=== PATIENT | female | born 1960 | race Caucasian/White ===

== ENCOUNTER 2018-01-16 15:13 | Outpatient (REF) | payer MEDICAID, SELFPAY ==
[2018-01-16 18:43] LABS: HCT 39.2 % (36.0-46.0); Mean Corp. HGB Concentration 33.2 g/dL (32.0-36.0); Mean Corpuscular Hemoglobin 29.1 pg (27.0-33.0); Mean Corpuscular Volume 87.7 fL (80-95); Mean Platelet Volume 10.4 fL (8.0-11.0); Platelet Count 293 x1000/uL (130-400); RBC 4.47 m/cumm (4.00-5.20); RBC Distribution Width 14.9 % (11.7-14.6); White Blood Cell Count 8.16 k/cumm (4.4-10.8)
[2018-01-16 19:08] LABS: ALT 13 U/L (12-78); AST 16 U/L (15-37); Albumin 3.7 g/dL (3.4-5.0); Alkaline Phosphatase 105 U/L (46-116); Anion Gap 11.2 mmol/L (3-11); BUN 8 mg/dL (7-18); Bilirubin, Total 0.2 mg/dL (0.2-1.0); CO2 24.8 mmol/L (21.0-32.0); CREATININE 0.86 mg/dL (0.55-1.02); Chloride 103 mmol/L (98-107); Glucose 105 mg/dL (70-100); Potassium 4.2 mmol/L (3.5-5.1); Sodium 139 mmol/L (136-145); Total Protein 7.1 g/dL (6.4-8.2)
[2018-01-16 19:38] LABS: FREE T4 0.73 ng/dL (0.76-1.46)
== END 2018-01-16 15:33 ==
LOC: LBN 15:13
PROVIDERS: PCP Nurse Practitioner; Visit Provider Nurse Practitioner
DX: E03.9 Hypothyroidism, unspecified (principal); R53.83 Other fatigue
CPT/HCPCS: 80053; 85027; 84439; 84443

== ENCOUNTER 2018-02-01 13:29 | Inpatient (IN) | payer MEDICAID, SELFPAY ==
[2018-02-01] VITALS (31 sets, daily range): BP systolic 109–159; BP diastolic 60–86; PULSE 79–104; RESP 10–22; TEMP 36.4–36.9; O2SAT 90–99
[2018-02-01] MEDS: Ondansetron 4 MG/2 ML VIAL IVP (14:22)
[2018-02-01] MEDS: Normal Saline 1,000 ML 1000 ML IV (14:22)
[2018-02-01 14:30] LABS: Abs Immature Grans 0.01 k/cumm (0.0-0.09); Absolute Basophil Count 0.02 k/cumm (0.0-0.2); Absolute Eosinophil Count 0.03 k/cumm (0.0-0.7); Absolute Lymphocyte Count 0.83 k/cumm (1.2-3.4); Absolute Monocyte Count 0.23 k/cumm (0.11-0.7); Absolute Neutrophil Count 6.97 k/cumm (1.2-6.7); Basophils % 0.2; Eosinophils % 0.4; HCT 40.7 % (36.0-46.0); HGB 13.4 g/dL (12.0-15.5); Immature Grans % 0.1; Lymphocytes % 10.3; Mean Corp. HGB Concentration 32.9 g/dL (32.0-36.0); Mean Corpuscular Hemoglobin 29.5 pg (27.0-33.0); Mean Corpuscular Volume 89.6 fL (80-95); Monocytes % 2.8; Neutrophils % 86.2; Platelet Count 327 x1000/uL (130-400); RBC 4.54 m/cumm (4.00-5.20); RBC Distribution Width 14.9 % (11.7-14.6); White Blood Cell Count 8.09 k/cumm (4.4-10.8)
--- NOTE | 2018-02-01 14:31 | W.ED.GENAD ---
Discharge Plan Disposition Patient Disposition: [facility] INPATIENT Condition: Fair Discharge Details Chief Complaint: Abd Prob Clinical Impression: Pancreatitis Primary Care Provider: Lona Richmond ED Provider: Amos Ceja Home Meds and New Rx's Prescriptions: No Action trazodone 50 mg tablet 200 mg PO HS Qty: 120 RF: 12 sertraline 100 mg tablet 200 mg PO DAILY Qty: 60 RF: 12 sennosides [Senna Lax] 8.6 mg tablet 17.2 mg PO DAILY PRN (Reason: constipation) Qty: 60 RF: 12 fluticasone-salmeterol [Advair HFA] 230-21 mcg/actuation HFA aerosol inhaler 1 puff Inhalation BID Qty: 1 RF: 12 cetirizine 10 MG tablet 1 tab PO DAILY PRNQty: 90 RF: 3 folic acid 1 MG tablet 1 mg PO DAILY Qty: 90 RF: 3 cyanocobalamin (vitamin B-12) 1,000 MCG tablet 1,000 mcg PO DAILY Qty: 90 RF: 3 baclofen 10 MG tablet 10 mg PO BID PRNQty: 20 RF: 0 COMBIVENT RESPIMAT INHAL SPRAY 4 GM AER.W.ADAP 1 puff Inhalation qid prn MDD 12 puffs/day Qty: 1 RF: 3 acetaminophen-codeine [Tylenol-Codeine #3] 1 EACH tablet 1 ea PO DAILY PRNQty: 20 RF: 0 zaleplon 10 MG capsule 10 mg PO HS Qty: 30 RF: 2 pantoprazole 40 mg tablet,delayed release (DR/EC) 40 mg PO BID Qty: 180 RF: 3 docusate sodium 100 mg capsule 100 mg PO DAILY Qty: 30 RF: 12 levothyroxine 112 mcg tablet 112 mcg PO DAILY 90 Days Qty: 96 RF: 3 Medical Decision Making <Amos Ceja, LAVON - Last Filed: 02/01/18 17:01> Patient presenting to the emergency department chief complaint of left upper quadrant epigastric pain with sudden onset at 4 AM. Patient states that pain radiates to her back and is 10 out of 10 and is similar to previous episodes of pancreatitis. Patient denies any alcohol intake or new medications and states that her previous episodes have been idiopathic in nature. Patient states severe nausea but denies any vomiting, diarrhea, fever chills, or other symptoms. Plan to check labs and perform CT image for concern of possible diverticulitis, pancreatitis with abscess, or other abdominal pathology. EKG performed by direct care staffer due to location of pain and reviewed with Dr. Martinez and is nondiagnostic. Pending results patient given 1 L of IV fluids, Zofran, and morphine 4 mg Review of labs show no leukocytosis, lipase of +4500, normal LFTs, and otherwise nondiagnostic labs. Patient still having some discomfort so given 0.5 mg of hydromorphone and CT abdomen and pelvis was ordered for consideration of abscess or other abdominal etiology. Review of CT imaging with the radiologist he states inflammation around the tail of the pancreas consistent with pancreatitis and clinical presentation. Patient has remained stable and states improvement of discomfort after hydromorphone. Plan to consult hospitalist for admission of patient. Spoke with Dr. Russell whom stated he would come down and evaluate the patient for admission. Pending examination and assessment by hospitalist patient stated increase in pain and so she was given 0.[address] Russell agreed to admit the patient and patient was agreeable with this plan of care. Patient remained stable throughout emergency department stay. <[place] Martinez, - Last Filed: 02/01/18 15:51> EKG 13: 40 Rate 104, intervals normal, tachycardic no ST elevations or depressions, no significant T wave inversions. No Q waves HPI <Amos Ceja NP - Last Filed: 02/01/18 17:01> General Mode of arrival: ambulatory. Date/Time Provider Initiated Documentation: 02/01/18 13:46. Limitations to Documentation: no limitations. Information obtained by: patient, RN notes reviewed and old records reviewed. History of Present Illness described as severe, with intensity rated at >10. Quality is described as sharp, and is localized to the abdomen (luq). Patient reports radiation to back. Patient started experiencing this hour(s) (10) and it has been constant. No relieving factors improve symptom(s), No exacerbating factors reported . Patient did receive the following treatments prior to arrival, none Related Data Home Medications Medication Instructions Recorded Confirmed cetirizine 1 tab PO DAILY PRN #90 tab 09/27/16 02/01/18 folic acid 1 mg PO DAILY #90 tab-cap 08/31/17 02/01/18 baclofen 10 mg PO BID PRN #20 tab-cap 09/13/17 02/01/18 cyanocobalamin (vitamin B-12) 1,000 mcg PO DAILY #90 tab 09/13/17 02/01/18 acetaminophen-codeine [Tylenol 1 ea PO DAILY PRN #20 tab-cap 11/21/17 02/01/18 W/Codeine #3 Tablet] zaleplon 10 mg PO HS #30 tab-cap 12/11/17 02/01/18 pantoprazole 40 mg tablet,delayed 40 mg PO BID #180 tab 01/08/18 02/01/18 release docusate sodium 100 mg capsule 100 mg PO DAILY #30 cap 01/16/18 02/01/18 fluticasone-salmeterol 230 mcg-21 1 puff INHALATION BID #1 inhaler 01/16/18 02/01/18 mcg/actuation HFA aerosol inhaler sennosides 8.6 mg tablet 17.2 mg PO DAILY PRN #60 tab 01/16/18 02/01/18 sertraline 100 mg tablet 200 mg PO DAILY #60 tab 01/16/18 02/01/18 trazodone 50 mg tablet 200 mg PO HS #120 tab-cap 01/16/18 02/01/18 levothyroxine 112 mcg tablet 112 mcg PO DAILY 90 Days #96 01/17/18 02/01/18 tab-cap Previous Rx's Medication Instructions Recorded folic acid 1 mg PO DAILY #90 tab-cap 08/31/17 cyanocobalamin (vitamin B-12) 1,000 mcg PO DAILY #90 tab 09/13/17 zaleplon 10 mg PO HS #30 tab-cap 12/11/17 pantoprazole 40 mg tablet,delayed 40 mg PO BID #180 tab 01/08/18 release docusate sodium 100 mg capsule 100 mg PO DAILY #30 cap 01/16/18 fluticasone-salmeterol 230 mcg-21 1 puff INHALATION BID #1 inhaler 01/16/18 mcg/actuation HFA aerosol inhaler sennosides 8.6 mg tablet 17.2 mg PO DAILY PRN #60 tab 01/16/18 sertraline 100 mg tablet 200 mg PO DAILY #60 tab 01/16/18 trazodone 50 mg tablet 200 mg PO HS #120 tab-cap 01/16/18 levothyroxine 112 mcg tablet 112 mcg PO DAILY 90 Days #96 01/17/18 tab-cap Allergies Allergy/AdvReac Type Severity Reaction Status Date / Time HORSE DANDER Allergy Intermediate SWELLING Uncoded 02/01/18 13:46 General Stated Complaint: Abd Prob JIMBO: 3 Review of Systems <Amos Ceja NP - Last Filed: 02/01/18 17:01> Constitutional Denies chills, Denies fever(s) and Reports poor appetite Cardiovascular Denies chest pain, Denies syncope and Denies dyspnea Respiratory Denies dyspnea Gastrointestinal Reports as per HPI, Reports abdominal pain, Denies melena, Denies change in bowel habits, Denies constipation, Denies diarrhea, Reports nausea and Denies vomiting Genitourinary Denies hematuria, Denies urinary incontinence, Denies urinary hesitancy and Denies urinary urgency Integumentary/Breasts Denies rash Neurologic Denies confusion and Denies syncope Psychiatric Denies confusion Exam <Amos Ceja NP - Last Filed: 02/01/18 17:01> Const General: cooperative Orientation: alert, awake and oriented x3 Resp Effort & Inspection: normal respiratory effort and able to speak in complete sentences Auscultation: clear to auscultation bilaterally Cardio Rate: regular rate Rhythm: regular rhythm Heart Sounds: S1 normal and S2 normal GI Inspection: normal to inspection Palpation: soft, no hepatosplenomegaly, not firm, no guarding, no masses, no pulsatile masses, not rigid, no splenomegaly and tender in the epigastrum, in the LLQ and in the LUQ; not at McBurney's point and Campa's sign negative Auscultation: normal bowel sounds Back/Spine/Pelvis Back: no CVA tenderness Neuro General: alert, awake, oriented x3, gait normal and moves all extremities Course <LAVON Weaver Last Filed: 02/01/18 17:01> Vital Signs Temperature 36.4 C L 02/01/18 13:32 Pulse 104 H 02/01/18 13:32 Respiratory Rate 20 02/01/18 13:32 Blood Pressure 136/81 02/01/18 13:32 Pulse Oximetry 97 02/01/18 13:32 Temperature 36.4 C L 10/04/18 13:32 Temperature Source Skin 02/01/18 13:32 Pulse 104 H 02/01/18 13:32 Respiratory Rate 20 02/01/18 13:32 Blood Pressure 136/81 02/01/18 13:32 Blood Pressure Position Sitting 02/01/18 13:32 Pulse Oximetry 97 02/01/18 13:32 Oxygen Delivery Method Room Air 02/01/18 13:32 Oxygen Flow Rate 0 02/01/18 13:32 Pain Level 10 02/01/18 14:22
--- NOTE | 2018-02-01 14:35 | ED.GENADUL_ITS ---
Discharge Plan Disposition Patient Disposition: [facility] INPATIENT Condition: Fair Discharge Details Chief Complaint: Abd Prob Clinical Impression: Pancreatitis Primary Care Provider: Lona Richmond ED Provider: Amos Ceja Home Meds and New Rx's Prescriptions: No Action trazodone 50 mg tablet 200 mg PO HS Qty: 120 RF: 12 sertraline 100 mg tablet 200 mg PO DAILY Qty: 60 RF: 12 sennosides [Senna Lax] 8.6 mg tablet 17.2 mg PO DAILY PRN (Reason: constipation) Qty: 60 RF: 12 fluticasone-salmeterol [Advair HFA] 230-21 mcg/actuation HFA aerosol inhaler 1 puff Inhalation BID Qty: 1 RF: 12 cetirizine 10 MG tablet 1 tab PO DAILY PRNQty: 90 RF: 3 folic acid 1 MG tablet 1 mg PO DAILY Qty: 90 RF: 3 cyanocobalamin (vitamin B-12) 1,000 MCG tablet 1,000 mcg PO DAILY Qty: 90 RF: 3 baclofen 10 MG tablet 10 mg PO BID PRNQty: 20 RF: 0 COMBIVENT RESPIMAT INHAL SPRAY 4 GM AER.W.ADAP 1 puff Inhalation qid prn MDD 12 puffs/day Qty: 1 RF: 3 acetaminophen-codeine [Tylenol-Codeine #3] 1 EACH tablet 1 ea PO DAILY PRNQty: 20 RF: 0 zaleplon 10 MG capsule 10 mg PO HS Qty: 30 RF: 2 pantoprazole 40 mg tablet,delayed release (DR/EC) 40 mg PO BID Qty: 180 RF: 3 docusate sodium 100 mg capsule 100 mg PO DAILY Qty: 30 RF: 12 levothyroxine 112 mcg tablet 112 mcg PO DAILY 90 Days Qty: 96 RF: 3 Medical Decision Making <Amos Ceja, LAVON - Last Filed: 02/01/18 17:01> Patient presenting to the emergency department chief complaint of left upper quadrant epigastric pain with sudden onset at 4 AM. Patient states that pain radiates to her back and is 10 out of 10 and is similar to previous episodes of pancreatitis. Patient denies any alcohol intake or new medications and states that her previous episodes have been idiopathic in nature. Patient states severe nausea but denies any vomiting, diarrhea, fever chills, or other symptoms. Plan to check labs and perform CT image for concern of possible diverticulitis, pancreatitis with abscess, or other abdominal pathology. EKG performed by staff research scientist due to location of pain and reviewed with Dr. Martinez and is nondiagnostic. Pending results patient given 1 L of IV fluids, Zofran, and morphine 4 mg Review of labs show no leukocytosis, lipase of +4500, normal LFTs, and otherwise nondiagnostic labs. Patient still having some discomfort so given 0.5 mg of hydromorphone and CT abdomen and pelvis was ordered for consideration of abscess or other abdominal etiology. Review of CT imaging with the radiologist he states inflammation around the tail of the pancreas consistent with pancreatitis and clinical presentation. Patient has remained stable and states improvement of discomfort after hydromorphone. Plan to consult hospitalist for admission of patient. Spoke with Dr. Russell whom stated he would come down and evaluate the patient for admission. Pending examination and assessment by hospitalist patient stated increase in pain and so she was given 0.[address] Russell agreed to admit the patient and patient was agreeable with this plan of care. Patient remained stable throughout emergency department stay. <West Martinez, - Last Filed: 02/01/18 15:51> EKG 13: 40 Rate 104, intervals normal, tachycardic no ST elevations or depressions, no significant T wave inversions. No Q waves HPI <Amos Ceja NP - Last Filed: 02/01/18 17:01> General Mode of arrival: ambulatory . Date/Time Provider Initiated Documentation: 02/01/18 13:46 . Limitations to Documentation: no limitations . Information obtained by: patient, RN notes reviewed and old records reviewed . History of Present Illness described as severe, with intensity rated at >10. Quality is described as sharp, and is localized to the abdomen (luq). Patient reports radiation to back. Patient started experiencing this hour(s) (10) and it has been constant. No relieving factors improve symptom(s), No exacerbating factors reported . Patient did receive the following treatments prior to arrival, none Related Data Home Medications Medication Instructions Recorded Confirmed cetirizine 1 tab PO DAILY PRN #90 tab 09/27/16 02/01/18 folic acid 1 mg PO DAILY #90 tab-cap 08/31/17 02/01/18 baclofen 10 mg PO BID PRN #20 tab-cap 09/13/17 02/01/18 cyanocobalamin (vitamin B-12) 1,000 mcg PO DAILY #90 tab 09/13/17 02/01/18 acetaminophen-codeine [Tylenol 1 ea PO DAILY PRN #20 tab-cap 11/21/17 02/01/18 W/Codeine #3 Tablet] zaleplon 10 mg PO HS #30 tab-cap 12/11/17 02/01/18 pantoprazole 40 mg tablet,delayed 40 mg PO BID #180 tab 01/08/18 02/01/18 release docusate sodium 100 mg capsule 100 mg PO DAILY #30 cap 01/16/18 02/01/18 fluticasone-salmeterol 230 mcg-21 1 puff INHALATION BID #1 inhaler 01/16/1808/16 mcg/actuation HFA aerosol inhaler sennosides 8.6 mg tablet 17.2 mg PO DAILY PRN #60 tab 01/16/18 02/01/18 sertraline 100 mg tablet 200 mg PO DAILY #60 tab 01/16/18 02/01/18 trazodone 50 mg tablet 200 mg PO HS #120 tab-cap 01/16/18 02/01/18 levothyroxine 112 mcg tablet 112 mcg PO DAILY 90 Days #96 01/17/18 02/01/18 tab-cap Previous Rx's Medication Instructions Recorded folic acid 1 mg PO DAILY #90 tab-cap 08/31/17 cyanocobalamin (vitamin B-12) 1,000 mcg PO DAILY #90 tab 09/13/17 zaleplon 10 mg PO HS #30 tab-cap 12/11/17 pantoprazole 40 mg tablet,delayed 40 mg PO BID #180 tab 01/08/18 release docusate sodium 100 mg capsule 100 mg PO DAILY #30 cap 01/16/18 fluticasone-salmeterol 230 mcg-21 1 puff INHALATION BID #1 inhaler 01/16/18 mcg/actuation HFA aerosol inhaler sennosides 8.6 mg tablet 17.2 mg PO DAILY PRN #60 tab 01/16/18 sertraline 100 mg tablet 200 mg PO DAILY #60 tab 01/16/18 trazodone 50 mg tablet 200 mg PO HS #120 tab-cap 01/16/18 levothyroxine 112 mcg tablet 112 mcg PO DAILY 90 Days #96 01/17/18 tab-cap Allergies Allergy/AdvReac Type Severity Reaction Status Date / Time HORSE DANDER Allergy Intermediate SWELLING Uncoded 02/01/18 13:46 General Stated Complaint: Abd Prob JIMBO: 3 Review of Systems <Amos Ceja NP - Last Filed: 02/01/18 17:01> Constitutional Denies chills, Denies fever(s) and Reports poor appetite Cardiovascular Denies chest pain, Denies syncope and Denies dyspnea Respiratory Denies dyspnea Gastrointestinal Reports as per HPI, Reports abdominal pain, Denies melena, Denies change in bowel habits, Denies constipation, Denies diarrhea, Reports nausea and Denies vomiting Genitourinary Denies hematuria, Denies urinary incontinence, Denies urinary hesitancy and Denies urinary urgency Integumentary/Breasts Denies rash Neurologic Denies confusion and Denies syncope Psychiatric Denies confusion Exam <Amos Ceja NP - Last Filed: 02/01/18 17:01> Const General: cooperative Orientation: alert, awake and oriented x3 Resp Effort & Inspection: normal respiratory effort and able to speak in complete sentences Auscultation: clear to auscultation bilaterally Cardio Rate: regular rate Rhythm: regular rhythm Heart Sounds: S1 normal and S2 normal GI Inspection: normal to inspection Palpation: soft, no hepatosplenomegaly, not firm, no guarding, no masses, no pulsatile masses, not rigid, no splenomegaly and tender in the epigastrum, in the LLQ and in the LUQ; not at McBurney's point and Campa's sign negative Auscultation: normal bowel sounds Back/Spine/Pelvis Back: no CVA tenderness Neuro General: alert, awake, oriented x3, gait normal and moves all extremities Course <LAVON Weaver Last Filed: 02/01/18 17:01> Vital Signs Temperature 36.4 C L 02/01/18 13:32 Pulse 104 H 02/01/18 13:32 Respiratory Rate 20 02/01/18 13:32 Blood Pressure 136/81 02/01/18 13:32 Pulse Oximetry 97 02/01/18 13:32 Temperature 36.4 C L 10/04/18 13:32 Temperature Source Skin 02/01/18 13:32 Pulse 104 H 02/01/18 13:32 Respiratory Rate 20 02/01/18 13:32 Blood Pressure 136/81 02/01/18 13:32 Blood Pressure Position Sitting 02/01/18 13:32 Pulse Oximetry 97 02/01/18 13:32 Oxygen Delivery Method Room Air 02/01/18 13:32 Oxygen Flow Rate 0 02/01/18 13:32 Pain Level 10 02/01/18 14:22
[2018-02-01 14:41] LABS: ALT 14 U/L (12-78); AST 13 U/L (15-37); Albumin 3.8 g/dL (3.4-5.0); Alkaline Phosphatase 109 U/L (46-116); Anion Gap 11.5 mmol/L (3-11); BUN 11 mg/dL (7-18); Bilirubin, Total 0.3 mg/dL (0.2-1.0); CO2 22.5 mmol/L (21.0-32.0); CREATININE 0.93 mg/dL (0.55-1.02); Calcium 9.1 mg/dL (8.5-10.1); Chloride 104 mmol/L (98-107); Glucose 141 mg/dL (70-100); Potassium 3.6 mmol/L (3.5-5.1); Sodium 138 mmol/L (136-145); Total Protein 7.5 g/dL (6.4-8.2)
[2018-02-01] MEDS: HYDROmorphone 2 MG/ML VIAL 0.5 MG IVP ×3 (14:54→17:44)
[2018-02-01 15:00] LABS: ETHANOL BLOOD < 3.0 mg/dL (<3); Lipase 4593 U/L (73-393)
--- NOTE | 2018-02-01 15:16 | DI.CT_ITS ---
SYMPTOM/DIAGNOSIS: ABD PAIN ABDOMEN AND PELVIC CT: CT scan of the abdomen and pelvis was performed following the uneventful administration of intravenous contrast material. Comparison is made with . There are dependent atelectatic changes in the lung bases. The liver, gallbladder, spleen and adrenal glands are unremarkable. There is fullness of the tail of the pancreas. Peripancreatic fluid is seen adjacent to the tail. No focal fluid collection is seen to suggest abscess. No organized fluid collection is seen. The kidneys show normal and symmetric enhancement. No solid renal mass or obstruction. The visualized portions of the urinary bladder are unremarkable as are the reproductive organs. There is a trace amount of free fluid in the pelvis. No pneumoperitoneum or significant adenopathy is present. The patient has bilateral total hip replacements which does limit evaluation of the pelvic structures. The bowel shows no evidence of obstruction or inflammation. No findings to suggest an acute appendicitis are present. There is atherosclerosis of the abdominal aorta but no aneurysmal dilatation is seen. Degenerative changes are seen in the spine. IMPRESSION: Findings consistent with an acute pancreatitis. No organized fluid collection is seen to suggest abscess or phlegmon. The findings were discussed with Amos Ceja of the ER on the date of the examination.
[2018-02-01] MEDS: Omnipaque 350 MG/ML 100 ML BTL IJ (15:40)
[2018-02-01 16:05] LABS: Bilirubin Negative (Negative); Blood Negative (Negative); Clarity Sl Cloudy; Glucose Negative (Negative); Ketones Negative (Negative); Leukocyte Esterase Negative (Negative); Nitrite Negative (Negative); Specific Gravity 1.015 (1.005-1.025); Urobilinogen 0.2 EU/dL (Up TO 0.2); pH 8.5 (5-8)
[2018-02-01 16:15] LABS: Bacteria Negative HPF (Negative); C & S Indicated? No; Casts Negative LPF (Negative); Crystals Many Amorphous HPF (Negative); Epithelial Cells Negative HPF (Negative); Mucus Negative (Negative); Other Cells Negative (Negative); RBC Negative (0-2); WBC Negative HPF (0-5)
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
[2018-02-01] MEDS: Lactated Ringers 1,000 ML 150 ML IV (17:03)
[2018-02-01] MEDS: Normal Saline Flush 10 ML SYR 20 ML (17:44)
[2018-02-01] MEDS: Enoxaparin 40 MG/0.4 ML SYR SC (17:45)
[2018-02-01] MEDS: Nicotine 14 MG/24 HR PATCH TD (18:00)
[2018-02-01] MEDS: Budesonide/Formoterol 160/4.5 6 GM 60 PUFF INH IH (19:21)
[2018-02-01] MEDS: Pantoprazole 40 MG TABCR PO (19:22)
[2018-02-01] MEDS: HYDROmorphone 2 MG/ML VIAL 1 MG IVP ×2 (19:24→21:18)
[2018-02-01] MEDS: traZODone 50 MG TAB 200 MG PO (21:17)
[2018-02-02] VITALS (29 sets, daily range): BP systolic 92–122; BP diastolic 50–96; PULSE 87–101; RESP 1–18; TEMP 36.4–37.7; O2SAT 88–96
[2018-02-02] MEDS: Albuterol 2.5 MG/3 ML INH SOLN VIAL UPD ×2 (03:54→18:59)
[2018-02-02] MEDS: HYDROmorphone 2 MG/ML VIAL 1 MG IVP ×5 (04:06→14:44)
[2018-02-02 07:09] LABS: HCT 35.7 % (36.0-46.0); HGB 11.3 g/dL (12.0-15.5); Mean Corp. HGB Concentration 31.7 g/dL (32.0-36.0); Mean Corpuscular Hemoglobin 29.4 pg (27.0-33.0); Mean Platelet Volume 9.7 fL (8.0-11.0); Platelet Count 280 x1000/uL (130-400); RBC 3.84 m/cumm (4.00-5.20); White Blood Cell Count 9.31 k/cumm (4.4-10.8)
[2018-02-02] MEDS: Budesonide/Formoterol 160/4.5 6 GM 60 PUFF INH IH ×2 (07:12→21:12)
[2018-02-02] MEDS: Lactated Ringers 1,000 ML 150 ML IV (07:13)
[2018-02-02 07:20] LABS: Anion Gap 8.1 mmol/L (3-11); BUN 11 mg/dL (7-18); CO2 25.9 mmol/L (21.0-32.0); CREATININE 0.86 mg/dL (0.55-1.02); Chloride 106 mmol/L (98-107); Cholesterol 230 mg/dL (50-200); Glucose 98 mg/dL (70-100); HDL Cholesterol 51 mg/dL (40-60); LDL CHOLESTEROL 161 mg/dL (<100); Sodium 140 mmol/L (136-145); Triglyceride 126 mg/dL (30-150)
--- NOTE | 2018-02-02 07:44 | PDOC.CMIN ---
- If Service Date Differs Date of service: 02/02/18 Time of Service: 07:44 Care Management Initial Assess REASON FOR HOSPITALIZATION:: Recurrent pancreatitis. PAST MEDICAL HISTORY/PAST SURGICAL HISTORY:: Restless leg, genital herpes simplex, tremors, hypothyroidism, GERD, esophageal reflux, depressive disorder, Valladares's esophagus, asthma, allergic rhinitis, agoraphobia, recurrent pancreatitis, anxiety, Vitamin B12 deficiency, PREVIOUS FUNCTIONAL STATUS/SOCIAL/FAMILY SUPPORTS:: Sherice resides in an apartment in [facility] with her 23 year old daughter, Leanne. 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 She is independent with her ADLs. CURRENT FUNCTIONAL STATUS:: Sherice is lying in bed in the ICU when CM visits this morning. She is engaged in conversation, makes good eye contact and is teary. She has had recurrent admissions to [facility] and is frustrated that no one seems to know what's wrong with me. Sherice c/o 9/10 pain and is nauseous, and reports that she has a headache due to not having any coffee this morning. She is currently NPO and receiving IV fluids and supplemental O2 via MD. Sherice reports that she has a daughter, Leanne, who is supportive but no other support people in the community. ADVANCE DIRECTIVES:: None on file at [facility]. Has patient been provided with information about the portal?: Yes Did the patient sign up for the portal?: No CODE STATUS:: Full Code INSURANCE COVERAGE / FINANCIAL ISSUES:: Medicaid. CURRENT HOME/COMMUNITY SERVICES/EQUIPMENT:: Sherice has met with Shayla Gramajo of [facility]. No other home or community services or equipment. PRIMARY CARE PHYSICIAN:: Lona Richmond. POTENTIAL DISCHARGE NEEDS:: Follow up appointment with PCP. PATIENT/FAMILY EDUCATION NEEDS:: Discharge education, any limitations and follow up plan of care. ANTICIPATED BARRIERS TO DISCHARGE:: No anticipated barriers to discharge. TRANSPORTATION:: Sherice will transport via private vehicle with her neighbor, Scottie. PLAN:: Sherice will discharge home when medically ready per MD. Anticipate patient will discharge with no services and follow up with PCP. CM will continue to offer support to patient and care team regarding discharge planning and disposition.
--- NOTE | 2018-02-02 08:37 | INITIAL_ITS ---
- If Service Date Differs Date of service: 02/02/18 Time of Service: 07:44 Care Management Initial Assess REASON FOR HOSPITALIZATION:: Recurrent pancreatitis. PAST MEDICAL HISTORY/PAST SURGICAL HISTORY:: Restless leg, genital herpes simplex, tremors, hypothyroidism, GERD, esophageal reflux, depressive disorder, Valladares's esophagus, asthma, allergic rhinitis, agoraphobia, recurrent pancreatitis, anxiety, Vitamin B12 deficiency, PREVIOUS FUNCTIONAL STATUS/SOCIAL/FAMILY SUPPORTS:: Sherice resides in an apartment in [place] [facility] with her 23 year old daughter, Leanne. 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 She is independent with her ADLs. CURRENT FUNCTIONAL STATUS:: Sherice is lying in bed in the ICU when CM visits this morning. She is engaged in conversation, makes good eye contact and is teary. She has had recurrent admissions to [facility] and is frustrated that no one seems to know what's wrong with me. Sherice c/o 9/10 pain and is nauseous, and reports that she has a headache due to not having any coffee this morning. She is currently NPO and receiving IV fluids and supplemental O2 via DC. Sherice reports that she has a daughter, Leanne, who is supportive but no other support people in the community. ADVANCE DIRECTIVES:: None on file at [facility]. Has patient been provided with information about the portal?: Yes Did the patient sign up for the portal?: No CODE STATUS:: Full Code INSURANCE COVERAGE / FINANCIAL ISSUES:: Medicaid. CURRENT HOME/COMMUNITY SERVICES/EQUIPMENT:: Sherice has met with Shayla Gramajo of [facility] No other home or community services or equipment. PRIMARY CARE PHYSICIAN:: Lona Richmond. POTENTIAL DISCHARGE NEEDS:: Follow up appointment with PCP. PATIENT/FAMILY EDUCATION NEEDS:: Discharge education, any limitations and follow up plan of care. ANTICIPATED BARRIERS TO DISCHARGE:: No anticipated barriers to discharge. TRANSPORTATION:: Sherice will transport via private vehicle with her neighbor, Scottie. PLAN:: Sherice will discharge home when medically ready per MD. Anticipate patient will discharge with no services and follow up with PCP. CM will continue to offer support to patient and care team regarding discharge planning and disposition.
[2018-02-02] MEDS: Pantoprazole 40 MG TABCR PO ×2 (08:54→21:12)
[2018-02-02] MEDS: Levothyroxine 112 MCG TAB PO (08:54)
[2018-02-02] MEDS: Sertraline 50 MG TAB 200 MG PO (08:56)
--- NOTE | 2018-02-02 09:39 | PHARADMIT ---
Addendum entered by Juan C Dodson III 02/03/18 13:37: Pharmacy Note Subjective Chest bX-ray shows opacities (?pneumonia) Zosyn started. Objective VS-OK K+3.1 SCr-0.59 H&H-10.0/31.1 Plts-238 Wgt-74.2 kg No BM Assessment Watch hydromorphone intake. Plan May havae pneumonia exacerbating COPD ( smoker) Original Note: Admission Pharmacy Clinical Review RECURRENT PANCREATITIS Code Status Full Code Current Weight Wgt- 72.1 kg Renally Cleared and Narrow Therapeutic Index Meds CrCl~ 62.3 mL/min Meds-OK QTc Value / Action Taken NA BP Control, Fever BP- 101/61 Tmax- 36.6C Electrolytes reviewed Na- 140 k+4.0 DVT Prophylaxis Lovenox-40mg Opiate Usage / Scheduled Bowel Regimen Ordered Yes Yes Plt/SCr for Heparin / Enoxaparin Plts-280 SCr-0.86 INR for Warfarin NA H/H stable, WBC/Bands H&H- 11.3/35.7 WBC- 9.31 Antibiotic appropriateness none Cultures and Sensitivities none Surgical ABX d/c within 24 hr na DM control / Insulin Dosing BG-98 Heart Failure (Check EF%) (HARRISON's, B-Block, Diuretics) none IV to PO Switch No Home Meds Reviewed Yes Home Meds Not Ordered Baclofen,Zyrtec, Tyl#3, B-12, Combivent, Docusate,FolicAcid, Senna Comments Lipase-4,593
[2018-02-02] MEDS: LORazepam 2 MG/ML VIAL 0.5 MG IVP (11:40)
--- NOTE | 2018-02-02 11:40 | PGE_ITS ---
Assessment and Plan (1) Pancreatitis, recurrent: Current visit: Yes Status: Acute Await MRCP results. Increase IV fluids, carefully monitoring ins and outs. Increase IV Dilaudid. Continue as needed Zofran; keep patient n.p.o. today. Patient aware of the effects of smoking on pancreatitis. (2) URI (upper respiratory infection): Current visit: Yes Status: Acute Likely due to a viral process. I do not feel that the patient requires antibiotic therapy at this time. (3) Atelectasis: Current visit: Yes Status: Acute Due to acute abdominal pain as well as narcotic therapy. Continue supplemental oxygen. I have ordered incentive spirometry to encourage deep breathing. (4) Hypoxia: Current visit: Yes Status: Acute Read discussion for atelectasis. (5) Tobacco use disorder: Current visit: Yes Status: Chronic See discussion above. Patient counseled on quitting. (6) Gastroesophageal reflux disease: Current visit: Yes Status: Chronic Continue IV PPI while n.p.o. Subjective Interval history since last seen: The patient complains of pain every time she takes a deep breath. She denies any dizziness, chest pain other than when she is taking a deep breath. She does report episodic nausea. She complains of epigastric abdominal pain which she describes as twisting and pulling. She reports cough productive of clear-yellowish sputum. She states she is recovering from a cold, which started with nasal congestion and sore throat, but only cough remains now. She still smokes. She verbalized understanding after our discussion of effects of smoking on the pancreas. Exam Const Other: Uncomfortable middle-aged female, pale, laying in bed HENTN Other: Pale, dry mucous membranes. No JVD. Wearing a nasal canula (1L). No goiter. Eyes General: appearance normal, both eyes and all related structures Resp Other: Clear to auscultation bilaterally. Coughs and is visibly uncomfortable upon taking deep breaths. Cardio Other: Regularly regular rhythm, no murmurs, rubs, or gallops GI Other: Abdomen soft, tender in left upper quadrant, nondistended Skin Other: Dry, otherwise intact Extrem Other: No edema, clubbing, or cyanosis of bilateral lower extremities. Objective Objective Clinical Data: Abnormal lab results 02/01/18 02/01/18 02/01/18 Range/Units 13:45 13:45 15:10 RBC (4.00-5.20) m/cumm Hgb (12.0-15.5) g/dL Hct (36.0-46.0) % MCHC (32.0-36.0) g/dL RDW 14.9 H (11.7-14.6) % Absolute Neutrophils 6.97 H (1.2-6.7) k/cumm Absolute Lymphocytes 0.83 L (1.2-3.4) k/cumm Anion Gap 11.5 H (3-11) mmol/L Glucose 141 H (70-100) mg/dL Calcium (8.5-10.1) mg/dL AST 13 L (15-37) U/L Total Cholesterol (50-200) mg/dL LDL Cholesterol Direct (<100) mg/dL Lipase 4593 H (73-393) U/L Urine pH 8.5 H (5-8) Urine Protein 30 H (Negative) mg/dL 02/02/18 02/02/18 Range/Units 06:38 06:38 RBC 3.84 L (4.00-5.20) m/cumm Hgb 11.3 L D (12.0-15.5) g/dL Hct 35.7 L (36.0-46.0) % MCHC 31.7 L (32.0-36.0) g/dL RDW 15.0 H (11.7-14.6) % Absolute Neutrophils (1.2-6.7) k/cumm Absolute Lymphocytes (1.2-3.4) k/cumm Anion Gap (3-11) mmol/L Glucose (70-100) mg/dL Calcium 8.0 L (8.5-10.1) mg/dL AST (15-37) U/L Total Cholesterol 230 H (50-200) mg/dL LDL Cholesterol Direct 161 H (<100) mg/dL Lipase (73-393) U/L Urine pH (5-8) Urine Protein (Negative) mg/dL Vital Signs Temperature 36.4 C L 02/02/18 09:02 Temperature Source Temporal Artery Scan 02/02/18 09:02 Pulse 92 H 02/02/18 10:01 Pulse 83 02/01/18 15:10 Respiratory Rate 18 02/02/18 00:05 Respiratory Effort 02/02/18 09:02 Respiratory Depth Normal 02/02/18 09:02 Respiratory Pattern Normal 02/02/18 09:02 Blood Pressure 112/58 L 02/02/18 10:01 Blood Pressure Mean 69 02/02/18 10:01 Blood Pressure Position Supine 02/02/18 09:02 Pulse Oximetry 92 L 02/02/18 10:01 Oxygen Delivery Method Nasal Cannula 02/02/18 09:02 Oxygen Flow Rate 1 02/02/18 09:02 Pain Level 9 02/02/18 11:01 Intake & Output 02/01/18 02/01/18 02/02/18 11:59 23:59 11:59 Intake Total 1430 / 1430 Output Total 575 / 575 Balance 855 / 855 Weight 69.5 kg 72.1 kg Intake: IV 1430 / 1430 Output: Urine 575 / 575 Other: Urine Color Straw Urine Appearance Clear Urine Odor Strong Voiding Methods Bedside Commode Laboratory Results WBC 9.31 k/cumm (4.4-10.8) 02/02/18 06:38 RBC 3.84 m/cumm (4.00-5.20) L 02/02/18 06:38 Hgb 11.3 g/dL (12.0-15.5) L D 02/02/18 06:38 Hct 35.7 % (36.0-46.0) L 02/02/18 06:38 MCV 93.0 fL (80-95) D 02/02/18 06:38 MCH 29.4 pg (27.0-33.0) 02/02/18 06:38 MCHC 31.7 g/dL (32.0-36.0) L 02/02/18 06:38 RDW 15.0 % (11.7-14.6) H 02/02/18 06:38 Plt Count 280 x1000/uL (130-400) 02/02/18 06:38 MPV 9.7 fL (8.0-11.0) 02/02/18 06:38 Immature Gran % 0.1 02/01/18 13:45 Neutrophils % 86.2 02/01/18 13:45 Lymphocytes % 10.3 02/01/18 13:45 Monocytes % 2.8 02/01/18 13:45 Eosinophils % 0.4 02/01/18 13:45 Basophils % 0.2 02/01/18 13:45 Absolute Neutrophils 6.97 k/cumm (1.2-6.7) H 02/01/18 13:45 Absolute Lymphocytes 0.83 k/cumm (1.2-3.4) L 02/01/18 13:45 Absolute Monocytes 0.23 k/cumm (0.11-0.7) 02/01/18 13:45 Absolute Eosinophils 0.03 k/cumm (0.0-0.7) 02/01/18 13:45 Absolute Basophils 0.02 k/cumm (0.0-0.2) 02/01/18 13:45 Sodium 140 mmol/L (136-145) 02/02/18 06:38 Potassium 4.0 mmol/L (3.5-5.1) 02/02/18 06:38 Chloride 106 mmol/L (98-107) 02/02/18 06:38 Carbon Dioxide 25.9 mmol/L (21.0-32.0) 02/02/18 06:38 Anion Gap 8.1 mmol/L (3-11) 02/02/18 06:38 BUN 11 mg/dL (7-18) 02/02/18 06:38 Creatinine 0.86 mg/dL (0.55-1.02) 02/02/18 06:38 Estimated GFR/1.73 m2 >= 60.00 (mL/min/1.73m2) 02/02/18 06:38 Glucose 98 mg/dL (70-100) 02/02/18 06:38 Calcium 8.0 mg/dL (8.5-10.1) L 02/02/18 06:38 Total Bilirubin 0.3 mg/dL (0.2-1.0) 02/01/18 13:45 AST 13 U/L (15-37) L 02/01/18 13:45 ALT 14 U/L (12-78) 02/01/18 13:45 Alkaline Phosphatase 109 U/L (46-116) 02/01/18 13:45 Total Protein 7.5 g/dL (6.4-8.2) 02/01/18 13:45 Albumin 3.8 g/dL (3.4-5.0) 02/01/18 13:45 Triglycerides 126 mg/dL (30-150) 02/02/18 06:38 Total Cholesterol 230 mg/dL (50-200) H 02/02/18 06:38 LDL Cholesterol Direct 161 mg/dL (<100) H 02/02/18 06:38 HDL Cholesterol 51 mg/dL (40-60) 02/02/18 06:38 Lipase 4593 U/L (73-393) H 02/01/18 13:45 Urine Color Yellow (Yellow) 02/01/18 15:10 Urine Clarity Sl cloudy 02/01/18 15:10 Urine pH 8.5 (5-8) H 02/01/18 15:10 Ur Specific [place] 1.015 (1.005-1.025) 02/01/18 15:10 Urine Protein 30 mg/dL (Negative) H 02/01/18 15:10 Urine Ketones Negative mg/dL (Negative) 02/01/18 15:10 Urine Blood Negative (Negative) 02/01/18 15:10 Urine Nitrite Negative (Negative) 02/01/18 15:10 Urine Bilirubin Negative (Negative) 02/01/18 15:10 Urine Urobilinogen 0.2 EU/dL (Up TO 0.2) 02/01/18 15:10 Ur Leukocyte Esterase Negative (Negative) 02/01/18 15:10 Urine RBC Negative (0-2) 02/01/18 15:10 Urine WBC Negative HPF (0-5) 02/01/18 15:10 Ur Epithelial Cells Negative HPF (Negative) 02/01/18 15:10 Urine Crystals Many amorphous HPF (Negative) 02/01/18 15:10 Urine Bacteria Negative HPF (Negative) 02/01/18 15:10 Urine Casts Negative LPF (Negative) 02/01/18 15:10 Urine Mucus Negative (Negative) 02/01/18 15:10 Urine Other Negative (Negative) 02/01/18 15:10 Ur Culture Indicated? No 02/01/18 15:10 Urine Glucose Negative mg/dL (Negative) 02/01/18 15:10 Ethyl Alcohol < 3.0 mg/dL (<3) 02/01/18 13:45
[2018-02-02] MEDS: Normal Saline Flush 10 ML SYR IVP ×3 (11:41→17:45)
--- NOTE | 2018-02-02 13:04 | DI.MRI_ITS ---
SYMPTOM/DIAGNOSIS: PANCREATITIS, MRCP MRCP: Routine examination was performed. The intra and extrahepatic bile ducts are normal in caliber. No filling defects are seen to suggest choledocholithiasis. No cholelithiasis is present. The pancreatic duct appears grossly unremarkable. There is a small amount of perihepatic and perisplenic fluid present. There do appear to be bilateral pleural effusions and basilar infiltrates. These may represent atelectasis or pneumonia. There is a small amount of fluid seen around the tail of the pancreas which appears stable compared to the examination from the CT of 02/01/18. IMPRESSION: 1. No evidence of cholelithiasis or choledocholithiasis. No biliary ductal dilatation. 2. Small amount of upper abdominal ascites. 3. Infiltrate and effusion suggested in the lower lungs. This may represent atelectasis or pneumonia.
[2018-02-02] MEDS: Lactated Ringers 1,000 ML 200 ML IV ×2 (14:21→21:17)
[2018-02-02] MEDS: Ketorolac 15 MG/ML VIAL IVP (17:31)
[2018-02-02] MEDS: Enoxaparin 40 MG/0.4 ML SYR SC (17:45)
[2018-02-02] MEDS: HYDROmorphone 2 MG/ML VIAL 0.5 MG IVP (19:40)
[2018-02-02] MEDS: traZODone 50 MG TAB 200 MG PO (21:12)
[2018-02-03] VITALS (17 sets, daily range): BP systolic 97–144; BP diastolic 45–67; PULSE 68–87; RESP 16–20; TEMP 36–37.3; O2SAT 89–94
[2018-02-03] MEDS: Ketorolac 15 MG/ML VIAL IVP ×5 (00:16→23:50)
[2018-02-03] MEDS: HYDROmorphone 2 MG/ML VIAL IVP ×3 (01:32→22:01)
[2018-02-03] MEDS: Lactated Ringers 1,000 ML 200 ML IV ×2 (01:39→05:52)
--- NOTE | 2018-02-03 07:00 | DI.RAD_ITS ---
SYMPTOMS/DIAGNOSIS: HYPOXIA, ? ATELECTASIS CHEST X-RAY, PORTABLE AP VIEW: Comparison CT scan is 02/01/18. Comparison chest x-ray is 10/16/17. The heart size and pulmonary vasculature are within normal limits. There are bilateral infiltrates in the lung bases; these areas may represent atelectasis or pneumonia. No gross effusions or pneumothoraces are identified. The bones are intact. Mild elevation of the left hemidiaphragm is noted. IMPRESSION: Bilateral basilar infiltrates. These may represent atelectasis or pneumonia.
[2018-02-03] MEDS: Budesonide/Formoterol 160/4.5 6 GM 60 PUFF INH IH ×2 (07:17→19:51)
[2018-02-03 07:19] LABS: HCT 31.1 % (36.0-46.0); Mean Corp. HGB Concentration 32.2 g/dL (32.0-36.0); Mean Corpuscular Hemoglobin 29.4 pg (27.0-33.0); Mean Corpuscular Volume 91.5 fL (80-95); Mean Platelet Volume 10.1 fL (8.0-11.0); Platelet Count 238 x1000/uL (130-400); RBC Distribution Width 14.8 % (11.7-14.6); White Blood Cell Count 6.64 k/cumm (4.4-10.8)
[2018-02-03 07:37] LABS: ALT 11 U/L (12-78); AST 22 U/L (15-37); Albumin 2.3 g/dL (3.4-5.0); Alkaline Phosphatase 76 U/L (46-116); Bilirubin, Direct 0.05 mg/dL (0.00-0.20); Bilirubin, Total 0.3 mg/dL (0.2-1.0)
[2018-02-03 07:46] LABS: Anion Gap 8.6 mmol/L (3-11); BUN 7 mg/dL (7-18); CO2 23.4 mmol/L (21.0-32.0); CREATININE 0.59 mg/dL (0.55-1.02); Calcium 7.9 mg/dL (8.5-10.1); Chloride 108 mmol/L (98-107); Glucose 65 mg/dL (70-100); Potassium 3.1 mmol/L (3.5-5.1); Sodium 140 mmol/L (136-145)
--- NOTE | 2018-02-03 09:11 | DI.VRAD_ITS ---
EXAM: XR Chest, 1 View EXAM DATE/TIME: 02/03/2018 7:26 AM CLINICAL HISTORY: 57 years old, female; Signs and symptoms; Other: Hypoxia; Patient HX: Question atelectasis TECHNIQUE: XR of the chest, 1 view. COMPARISON: CR RIGHT RIBS TO INCLUDE CXR 12/19/2011 2:52 PM FINDINGS: Lungs: Opacities in both bases may represent atelectasis or pneumonia. Pleural space: Unremarkable. No pleural effusion. No pneumothorax. Heart/Mediastinum: Unremarkable. No cardiomegaly. Upper abdomen: Mildly elevated left hemidiaphragm Bones/joints: Unremarkable for patient's age. IMPRESSION: Opacities in both bases may represent atelectasis or pneumonia. Dictated and Authenticated by: Deb Figueredo MD. Ordering:ZAID BRICENO MD
[2018-02-03] MEDS: Sertraline 50 MG TAB 200 MG PO (09:24)
[2018-02-03] MEDS: Levothyroxine 112 MCG TAB PO (09:24)
[2018-02-03] MEDS: Pantoprazole 40 MG TABCR PO ×2 (09:24→19:51)
[2018-02-03] MEDS: POTASSIUM CHLORIDE/D5-0.9%NACL 1,000 ML 150 MEQ IV ×2 (10:11→18:03)
[2018-02-03] MEDS: PIPERACILLIN/TAZO 3.375 GM in Normal Saline 50 ML IVPB ×3 (10:21→22:01)
[2018-02-03] MEDS: Normal Saline Flush 10 ML SYR IVP ×4 (11:50→23:50)
--- NOTE | 2018-02-03 13:25 | PDOC.CMPRO ---
Care Management Progress Note S/O: Sherice was sound asleep when I went to visit this morning. She did have some diagnostic testing done earlier this morning. A: 57 y.o. female admitted for recurrent pancreatitis. Remains in Acute Care status. P: Sherice will return home when medically cleared for discharge. No home services needed. Neighbor, Scottie, will transport by car.
--- NOTE | 2018-02-03 15:07 | PGE_ITS ---
Assessment and Plan (1) Pancreatitis, recurrent: Current visit: Yes Status: Acute MRCP unremarkable. Clinically improving. Advance diet. Continue IVF. Toradol + dilaudid. (2) URI (upper respiratory infection): Current visit: Yes Status: Acute CXR this am also questionable for pneumonia vs atelectasis. Empiric zosyn started, but will likely be discontinued/transitioned to PO abx within the next 24 hours if the patient can tolerate PO. (3) Atelectasis: Current visit: Yes Status: Acute Encouraged IS. (4) Hypoxia: Current visit: Yes Status: Acute Multifactorial, improving. Will need ambulatory pulse ox testing. Continue IS for atelectasis, limiting narcotics. Treating possible underlying CAP. (5) Tobacco use disorder: Current visit: Yes Status: Chronic See discussion above. Patient counseled on quitting. (6) Gastroesophageal reflux disease: Current visit: Yes Status: Chronic Continue IV PPI Subjective Interval history since last seen: Patient wanted to leave AMA yesterday, but decided to stay. She feels better today. She is hungry and is interested in trying food. Pain is better controlled. She denies any dizziness, chest pain, shortness of breath, nausea, vomiting. Her cough is getting better. Exam Narrative Exam Narrative: Const More comfortable today, laying in bed HENMT MMM, No JVD. Wearing a nasal canula (1L). No goiter. Eyes small conjunctival hemorrhage right eye Resp CTAB Cardio Other: Regularly regular rhythm, no murmurs, rubs, or gallops GI Other: Abdomen soft, tender in epigastrium Skin Other: Dry, otherwise intact Extrem Other: No edema, clubbing, or cyanosis of bilateral lower extremities. Eyes General: appearance normal, both eyes and all related structures Objective Objective Clinical Data: Abnormal lab results 02/03/18 02/03/18 Range/Units 06:20 06:20 RBC 3.40 L (4.00-5.20) m/cumm Hgb 10.0 L (12.0-15.5) g/dL Hct 31.1 L (36.0-46.0) % RDW 14.8 H (11.7-14.6) % Potassium 3.1 L (3.5-5.1) mmol/L Chloride 108 H (98-107) mmol/L Glucose 65 L (70-100) mg/dL Calcium 7.9 L (8.5-10.1) mg/dL ALT 11 L (12-78) U/L Total Protein 5.0 L (6.4-8.2) g/dL Albumin 2.3 L (3.4-5.0) g/dL Vital Signs Temperature 36.6 C 02/03/18 12:45 Temperature Source Temporal Artery Scan 02/03/18 12:45 Pulse 78 02/03/18 12:45 Pulse Rhythm Regular 02/03/18 10:24 Pulse 83 02/01/18 15:10 Respiratory Rate 16 02/03/18 12:45 Respiratory Effort 02/03/18 10:24 Respiratory Depth Normal 02/03/18 10:24 Respiratory Pattern Normal 02/03/18 10:24 Blood Pressure 127/66 02/03/18 12:45 Blood Pressure Mean 80 02/03/18 12:42 Blood Pressure Position Supine 02/02/18 09:02 Pulse Oximetry 94 L 02/03/18 12:45 Oxygen Delivery Method Nasal Cannula 02/03/18 12:45 Oxygen Flow Rate 2 02/03/18 12:45 Pain Level 6 02/03/18 11:51 Comment 02/03/18 03:10 Intake & Output 02/02/18 02/03/18 02/03/18 23:59 11:59 23:59 Intake Total 1570.000 / 5774.842 4241.666 / 2766.666 Output Total 175 / 175 1275 / 1275 Balance 1395.000 / 9760.240 0283.666 / 1491.666 Weight 74.2 kg Intake: IV 1570.000 / 6985.838 3684.666 / 2766.666 Output: Urine 175 / 175 1275 / 1275 Other: Urine Color Dark Eloise Light Eloise Urine Appearance Clear Clear Urine Odor Normal None Voiding Methods Bedside Commode Bedside Commode Laboratory Results WBC 6.64 k/cumm (4.4-10.8) 02/03/18 06:20 RBC 3.40 m/cumm (4.00-5.20) L 02/03/18 06:20 Hgb 10.0 g/dL (12.0-15.5) L 02/03/18 06:20 Hct 31.1 % (36.0-46.0) L 02/03/18 06:20 MCV 91.5 fL (80-95) 02/03/18 06:20 MCH 29.4 pg (27.0-33.0) 02/03/18 06:20 MCHC 32.2 g/dL (32.0-36.0) 02/03/18 06:20 RDW 14.8 % (11.7-14.6) H 02/03/18 06:20 Plt Count 238 x1000/uL (130-400) 02/03/18 06:20 MPV 10.1 fL (8.0-11.0) 02/03/18 06:20 Immature Gran % 0.1 02/01/18 13:45 Neutrophils % 86.2 02/01/18 13:45 Lymphocytes % 10.3 02/01/18 13:45 Monocytes % 2.8 02/01/18 13:45 Eosinophils % 0.4 02/01/18 13:45 Basophils % 0.2 02/01/18 13:45 Absolute Neutrophils 6.97 k/cumm (1.2-6.7) H 02/01/18 13:45 Absolute Lymphocytes 0.83 k/cumm (1.2-3.4) L 02/01/18 13:45 Absolute Monocytes 0.23 k/cumm (0.11-0.7) 02/01/18 13:45 Absolute Eosinophils 0.03 k/cumm (0.0-0.7) 02/01/18 13:45 Absolute Basophils 0.02 k/cumm (0.0-0.2) 02/01/18 13:45 Sodium 140 mmol/L (136-145) 02/03/18 06:20 Potassium 3.1 mmol/L (3.5-5.1) L 02/03/18 06:20 Chloride 108 mmol/L (98-107) H 02/03/18 06:20 Carbon Dioxide 23.4 mmol/L (21.0-32.0) 02/03/18 06:20 Anion Gap 8.6 mmol/L (3-11) 02/03/18 06:20 BUN 7 mg/dL (7-18) 02/03/18 06:20 Creatinine 0.59 mg/dL (0.55-1.02) 02/03/18 06:20 Estimated GFR/1.73 m2 >= 60.00 (mL/min/1.73m2) 02/03/18 06:20 Glucose 65 mg/dL (70-100) L 02/03/18 06:20 Calcium 7.9 mg/dL (8.5-10.1) L 02/03/18 06:20 Total Bilirubin 0.3 mg/dL (0.2-1.0) 02/03/18 06:20 Conjugated Bilirubin 0.05 mg/dL (0.00-0.20) 02/03/18 06:20 AST 22 U/L (15-37) 02/03/18 06:20 ALT 11 U/L (12-78) L 02/03/18 06:20 Alkaline Phosphatase 76 U/L (46-116) 02/03/18 06:20 Total Protein 5.0 g/dL (6.4-8.2) L 02/03/18 06:20 Albumin 2.3 g/dL (3.4-5.0) L 02/03/18 06:20 Triglycerides 126 mg/dL (30-150) 02/02/18 06:38 Total Cholesterol 230 mg/dL (50-200) H 02/02/18 06:38 LDL Cholesterol Direct 161 mg/dL (<100) H 02/02/18 06:38 HDL Cholesterol 51 mg/dL (40-60) 02/02/18 06:38 Lipase 4593 U/L (73-393) H 02/01/18 13:45 Urine Color Yellow (Yellow) 02/01/18 15:10 Urine Clarity Sl cloudy 02/01/18 15:10 Urine pH 8.5 (5-8) H 02/01/18 15:10 Ur Specific Staples 1.015 (1.005-1.025) 02/01/18 15:10 Urine Protein 30 mg/dL (Negative) H 02/01/18 15:10 Urine Ketones Negative mg/dL (Negative) 02/01/18 15:10 Urine Blood Negative (Negative) 02/01/18 15:10 Urine Nitrite Negative (Negative) 02/01/18 15:10 Urine Bilirubin Negative (Negative) 02/01/18 15:10 Urine Urobilinogen 0.2 EU/dL (Up TO 0.2) 02/01/18 15:10 Ur Leukocyte Esterase Negative (Negative) 02/01/18 15:10 Urine RBC Negative (0-2) 02/01/18 15:10 Urine WBC Negative HPF (0-5) 02/01/18 15:10 Ur Epithelial Cells Negative HPF (Negative) 02/01/18 15:10 Urine Crystals Many amorphous HPF (Negative) 02/01/18 15:10 Urine Bacteria Negative HPF (Negative) 02/01/18 15:10 Urine Casts Negative LPF (Negative) 02/01/18 15:10 Urine Mucus Negative (Negative) 02/01/18 15:10 Urine Other Negative (Negative) 02/01/18 15:10 Ur Culture Indicated? No 02/01/18 15:10 Urine Glucose Negative mg/dL (Negative) 02/01/18 15:10 Ethyl Alcohol < 3.0 mg/dL (<3) 02/01/18 13:45
[2018-02-03] MEDS: Senna TAB 2 TAB PO (21:58)
[2018-02-03] MEDS: Docusate Sodium 100 MG CAP PO (21:59)
[2018-02-03] MEDS: traZODone 50 MG TAB 200 MG PO (22:00)
[2018-02-04] VITALS (13 sets, daily range): BP systolic 122–139; BP diastolic 64–72; PULSE 67–90; RESP 12–24; TEMP 36.1–36.6; O2SAT 90–95
[2018-02-04] MEDS: POTASSIUM CHLORIDE/D5-0.9%NACL 1,000 ML 150 MEQ IV ×2 (01:30→09:42)
[2018-02-04] MEDS: PIPERACILLIN/TAZO 3.375 GM in Normal Saline 50 ML IVPB ×2 (04:03→09:58)
[2018-02-04] MEDS: Ketorolac 15 MG/ML VIAL IVP (05:30)
[2018-02-04] MEDS: HYDROmorphone 2 MG/ML VIAL IVP (05:34)
[2018-02-04] MEDS: Normal Saline Flush 10 ML SYR IVP ×2 (05:36→09:44)
[2018-02-04] MEDS: Heparin 5,000 UNITS/ML VIAL 5000 UNITS SC (06:28)
[2018-02-04 07:09] LABS: HCT 29.4 % (36.0-46.0); HGB 9.5 g/dL (12.0-15.5); Mean Corp. HGB Concentration 32.3 g/dL (32.0-36.0); Mean Corpuscular Hemoglobin 29.4 pg (27.0-33.0); Mean Platelet Volume 10.1 fL (8.0-11.0); Platelet Count 224 x1000/uL (130-400); RBC 3.23 m/cumm (4.00-5.20); RBC Distribution Width 14.6 % (11.7-14.6); White Blood Cell Count 5.84 k/cumm (4.4-10.8)
[2018-02-04 07:15] LABS: Anion Gap 7.8 mmol/L (3-11); BUN 5 mg/dL (7-18); CO2 23.2 mmol/L (21.0-32.0); CREATININE 0.58 mg/dL (0.55-1.02); Calcium 7.8 mg/dL (8.5-10.1); Chloride 110 mmol/L (98-107); Glucose 127 mg/dL (70-100); Magnesium 1.8 mg/dL (1.8-2.4); Potassium 3.7 mmol/L (3.5-5.1); Sodium 141 mmol/L (136-145)
[2018-02-04 07:23] LABS: ALT 12 U/L (12-78); AST 22 U/L (15-37); Albumin 2.3 g/dL (3.4-5.0); Alkaline Phosphatase 85 U/L (46-116); Bilirubin, Direct 0.08 mg/dL (0.00-0.20); Bilirubin, Total 0.3 mg/dL (0.2-1.0); Total Protein 5.2 g/dL (6.4-8.2)
[2018-02-04] MEDS: Sertraline 50 MG TAB 200 MG PO (09:16)
[2018-02-04] MEDS: Docusate Sodium 100 MG CAP PO (09:16)
[2018-02-04] MEDS: Levothyroxine 112 MCG TAB PO (09:16)
[2018-02-04] MEDS: Pantoprazole 40 MG TABCR PO (09:16)
[2018-02-04] MEDS: Budesonide/Formoterol 160/4.5 6 GM 60 PUFF INH IH (09:56)
--- NOTE | 2018-02-04 10:57 | PDOC.CMDIS ---
LACE Index Scoring Tool - Questions: Length of Stay (in days): 1 Acuity (Admit via E.D.?): Yes Comorbidities: Chronic Pulmonary Disease (asthma) E.D. Visits: 5 - Answers: Total Score: 10 Risk of Readmission: High Risk Care Management Discharge Reason for Hospitalization: Recurrent pancreatitis. Discharge Plan: Sherice will return home when medically cleared for discharge. No home services needed. She is a high resource utilization individual with 5 Emergency Department visits and 4 acute admissions to the hospital. CI referral made in July and Shayla Gramajo met with her. Second referral made today. Friend, Scottie, will transport home by private car.
--- NOTE | 2018-02-04 13:07 | DSE_ITS ---
Date of service: 02/04/18 Time of Service: 13:02 DS: Diagnosis Discharge Diagnosis (1) Pancreatitis, recurrent: Status: Resolved (2) URI (upper respiratory infection): Status: Acute (3) Atelectasis: Status: Resolved (4) Hypoxia: Status: Resolved (5) Tobacco use disorder: Status: Chronic (6) Gastroesophageal reflux disease: Status: Chronic Discharge Plan Disposition Patient Disposition: HOME Condition: Good Discharge Details Chief Complaint: Abd Prob Reason For Visit: RECURRENT PANCREATITIS M/S OVERFLOW Admit Date/Time: 02/01/18 16:28 Admit Provider: Chao Russell Attending Provider: Chao Russell Primary Care Provider: Lona Richmond ED Provider: Amos Ceja Hospital Course Hospital Course: Ms Meyers presented to [facility] with recurrent pancreatitis which is not associated with gallstones or alcohol use. She was initially kept NPO with aggressive IV hydration and intravenous pain management. She improved rather rapidly, was able to tolerate initially clear liquid diet, then full liquids, and finally a regular consistency diet. She did have some atelectasis associated with her pancreatitis, which we treated with incentive spirometry and supplemental oxygen. She does not require supplemental oxygen at the time of discharge. She does not currently have any evidence of pneumonia, though she was treated empirically for this with 2 days of antibiotics while in the hospital. Her pain is well controlled on oral medications. Interestingly, the patient takes senna at home to manage her chronic constipation. There is literature indicating that senna can be associated with pancreatitis in women - the patient was told to stop this medication on discharge. Finally, her tobacco abuse is an ungoing issue - and, even though it could be affecting her pancreatic health in addition to causing other issues, Ms Meyers is not ready to quit after numerous conversations on the subject. Home Meds and New Rx's Prescriptions: New polyethylene glycol 3350 17 gram Powder In Packet 17 g PO DAILY PRN PRN (Reason: Constipation) Qty: 30 RF: 0 oxycodone-acetaminophen 5-325 mg Tablet 1 tab PO Q6H PRN PRNQty: 20 RF: 0 ibuprofen 400 mg Tablet 400 mg PO QID PRN PRNQty: 0 RF: 0 Continue trazodone 50 mg tablet 200 mg PO HS Qty: 120 RF: 12 sertraline 100 mg tablet 200 mg PO DAILY Qty: 60 RF: 12 fluticasone-salmeterol [Advair HFA] 230-21 mcg/actuation HFA aerosol inhaler 1 puff Inhalation BID Qty: 1 RF: 12 cetirizine 10 MG tablet 1 tab PO DAILY PRNQty: 90 RF: 3 folic acid 1 MG tablet 1 mg PO DAILY Qty: 90 RF: 3 cyanocobalamin (vitamin B-12) 1,000 MCG tablet 1,000 mcg PO DAILY Qty: 90 RF: 3 baclofen 10 MG tablet 10 mg PO BID PRNQty: 20 RF: 0 COMBIVENT RESPIMAT INHAL SPRAY 4 GM AER.W.ADAP 1 puff Inhalation qid prn MDD 12 puffs/day Qty: 1 RF: 3 zaleplon 10 MG capsule 10 mg PO HS Qty: 30 RF: 2 pantoprazole 40 mg tablet,delayed release (DR/EC) 40 mg PO BID Qty: 180 RF: 3 docusate sodium 100 mg capsule 100 mg PO DAILY Qty: 30 RF: 12 levothyroxine 112 mcg tablet 112 mcg PO DAILY 90 Days Qty: 96 RF: 3 Discontinued sennosides [Senna Lax] 8.6 mg tablet 17.2 mg PO DAILY PRN (Reason: constipation) Qty: 60 RF: 12 acetaminophen-codeine [Tylenol-Codeine #3] 1 EACH tablet 1 ea PO DAILY PRNQty: 20 RF: 0 Discharge Instructions Instructions: Pancreatitis (DC) Additional Instructions: Consider stopping smoking! Return to the hospital with any fever, bleeding, chest pain, shortness of breath , or if your abdominal pain returns. Referrals: Lona Richmond NP [Primary Care Provider] - (1-2 weeks) Activity:: Activity as Tolerated Equipment/Supplies:: No Equipment Needed Diet:: As Tolerated Discharge Orders Discharge Orders: Discharge Order (Routine); Ordered 02/04/18 Ordered By: Melissa Good Exam Narrative Exam Narrative: Const Completely comfortable, laying in bed HENMT MMM, No JVD. No goiter. Not wearing o2. Eyes small conjunctival hemorrhage right eye Resp CTAB Cardio Other: Regularly regular rhythm, no murmurs, rubs, or gallops GI Other: Abdomen soft, nontender, nondistended Skin Other: Dry, otherwise intact Extrem Other: No edema, clubbing, or cyanosis of bilateral lower extremities. Eyes General: appearance normal, both eyes and all related structures DS: Data Vitals/I&O Vitals and I&O: Vital Signs Temperature 36.6 C 02/04/18 12:27 Temperature Source Tympanic 02/04/18 12:27 Pulse 68 02/04/18 12:27 Pulse Rhythm Regular 02/04/18 09:34 Pulse 83 02/01/18 15:10 Respiratory Rate 16 02/04/18 12:27 Respiratory Effort Non-Labored 02/04/18 09:34 Respiratory Depth Normal 02/04/18 09:34 Respiratory Pattern Normal 02/04/18 09:34 Blood Pressure 139/72 02/04/18 12:27 Blood Pressure Mean 88 02/04/18 12:22 Blood Pressure Position Supine 02/02/18 09:02 Pulse Oximetry 95 02/04/18 12:27 Oxygen Delivery Method Room Air 02/04/18 12:27 Oxygen Flow Rate 0 02/04/18 12:27 Pain Level 6 02/04/18 05:30 Comment 02/03/18 03:10 Intake & Output 02/03/18 02/04/18 02/04/18 23:59 11:59 23:59 Intake Total 1610 / 1610 2169 / 2169 Output Total 2125 / 2125 850 / 850 425 / 425 Balance -515 / -515 1319 / 1319 -425 / -425 Weight 73.7 kg Intake: IV 1120 / 1120 2080 / 2080 Oral 490 / 490 89 / 89 Output: Urine 2125 / 2125 850 / 850 425 / 425 Other: Urine Color Light Eloise Light Eloise Light Eloise Urine Appearance Clear Cloudy Clear Urine Odor Normal Strong Strong Comment approximate output Voiding Methods Bedside Commode Bedside Commode Bedside Commode Completed studies during hospitalization [Text1]: MRCP: 1. No evidence of cholelithiasis or choledocholithiasis. No biliary ductal dilatation. 2. Small amount of upper abdominal ascites. 3. Infiltrate and effusion suggested in the lower lungs. This may represent atelectasis or pneumonia. CT abdomen/pelvis: Findings consistent with an acute pancreatitis. No organized fluid collection is seen to suggest abscess or phlegmon. CXR: Opacities in both bases may represent atelectasis or pneumonia. Labs on day of discharge: Labs from last 24 hours 02/04/18 02/04/1818 06:40 06:40 06:40 WBC 5.84 RBC 3.23 L Hgb 9.5 L Hct 29.4 L MCV 91.0 MCH 29.4 MCHC 32.3 RDW 14.6 Plt Count 224 MPV 10.1 Sodium 141 Potassium 3.7 Chloride 110 H Carbon Dioxide 23.2 Anion Gap 7.8 BUN 5 L Creatinine 0.58 Estimated GFR/1.73 m2 >= 60.00 Glucose 127 H Calcium 7.8 L Magnesium 1.8 Total Bilirubin 0.3 Conjugated Bilirubin 0.08 AST 22 ALT 12 Alkaline Phosphatase 85 Total Protein 5.2 L Albumin 2.3 L 02/03/18 09:37 Stool Stool Occult Blood (SERGIO) - Pending Preliminary micro results at discharge 02/03/18 09:37 Stool Occult Blood (SERGIO) - Pending Stool
== END 2018-02-04 13:40 | disposition home or self-care (01) | DRG 439 ==
LOC: ER 16:51 → ICU 02-02 10:38
PROVIDERS: Admitting Provider Internal Medicine; Emergency Provider Nurse Practitioner Family; PCP Nurse Practitioner; Visit Provider Internal Medicine
DX: K86.1 Other chronic pancreatitis (principal); J98.11 Atelectasis; J06.9 Acute upper respiratory infection, unspecified; F17.210 Nicotine dependence, cigarettes, uncomplicated; R09.02 Hypoxemia; K21.9 Gastro-esophageal reflux disease without esophagitis; E03.9 Hypothyroidism, unspecified; F32.9 Major depressive disorder, single episode, unspecified; J45.909 Unspecified asthma, uncomplicated
CPT/HCPCS: 36415; 80048; 80053; 80061; 80076; 83690; 83721; 85027; 93005; 94618; 94640; 96361; 96374; 96375; 96376; 99222; 99232; 99239; 99285; J1650; 71045; 74177; 74181; 80320; 81003; 81015; 82272; 83735; 85025; 93010; 99284; J1644; J1885; J2060; J2405; J2543; J3490; J7613

== ENCOUNTER 2018-07-17 16:18 | Emergency (ER) | payer MEDICAID, SELFPAY ==
[2018-07-17 16:22] VITALS: BP 144/68; PULSE 93; RESP 18; TEMP 36.5; O2SAT 97
--- NOTE | 2018-07-17 16:44 | DI.RAD_ITS ---
SYMPTOM/DIAGNOSIS: S/P TWISTING INJURY, ? FX, PAIN RIGHT RIBS AND PA AND LATERAL CHEST: Comparison is made with 02/03/18. Heart size and pulmonary vasculature are within normal limits. The lungs are clear and well expanded. No effusions or pneumothoraces are identified. No rib fracture is identified. The spine appears unremarkable. IMPRESSION: No acute abnormality.
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
[2018-07-17] MEDS: oxyCODONE 5 MG TAB PO (16:58)
[2018-07-17] MEDS: oxyCODONE 5 MG TAB (18:35)
[2018-07-17] MEDS: Ibuprofen 600 MG TAB PO (18:36)
[2018-07-17 18:43] VITALS: BP 144/68; PULSE 93; RESP 18; TEMP 36.5; O2SAT 97
== END 2018-07-17 18:48 | disposition home or self-care (01) ==
PROVIDERS: Emergency Provider Physician Assistant; PCP Nurse Practitioner
DX: R07.81 Pleurodynia (principal); W22.8XXA Striking against or struck by other objects, initial encounter; F17.210 Nicotine dependence, cigarettes, uncomplicated
CPT/HCPCS: 99283; 71046; 71100

== ENCOUNTER 2018-08-01 03:39 | Outpatient (CLI) | payer MEDICAID, SELFPAY ==
--- NOTE | 2018-08-01 12:05 | DI.CT_ITS ---
SYMPTOMS/DIAGNOSIS: RIGHT UPPER QUADRANT ABDOMINAL PAIN 9/10 SINCE 07/15/18, PLEURODYNIA, R10.11, R07.[address]: The study was carried out with an intravenous injection of 99 cc of Omnipaque 350 and oral ingestion of dilute contrast material. There are some small regions of bibasilar atelectasis. There is no pleural effusion. The heart is not enlarged. The liver is normal. The gallbladder is intact with no evidence of gallstones. There is no evidence of biliary dilatation. The pancreas, and spleen, and kidneys and adrenals are normal. There is no evidence of bowel obstruction. Note is made of a considerable quantity of fecal material in the large bowel and the upper and mid abdomen. There is no evidence of free air or free fluid in the intraperitoneal space. There are atherosclerotic changes involving the aorta without evidence of an aneurysm. No bony abnormality is seen. SUMMARY: A large quantity of fecal material is noted in the visualized portions of the colon, findings consistent with constipation. The examination is otherwise essentially unremarkable.
[2018-08-01 12:34] LABS: HCT 38.3 % (36.0-46.0); HGB 12.6 g/dL (12.0-15.5); Mean Corp. HGB Concentration 32.9 g/dL (32.0-36.0); Mean Corpuscular Hemoglobin 30.7 pg (27.0-33.0); Mean Corpuscular Volume 93.4 fL (80-95); Mean Platelet Volume 9.8 fL (8.0-11.0); Platelet Count 273 x1000/uL (130-400); White Blood Cell Count 7.12 k/cumm (4.4-10.8)
[2018-08-01 12:56] LABS: ALT 13 U/L (12-78); AST 21 U/L (15-37); Albumin 3.7 g/dL (3.4-5.0); Alkaline Phosphatase 99 U/L (46-116); Anion Gap 11.5 mmol/L (3-11); BUN 12 mg/dL (7-18); Bilirubin, Total 0.3 mg/dL (0.2-1.0); CO2 24.5 mmol/L (21.0-32.0); CREATININE 0.82 mg/dL (0.55-1.02); Chloride 103 mmol/L (98-107); Glucose 102 mg/dL (70-100); Potassium 4.2 mmol/L (3.5-5.1); Sodium 139 mmol/L (136-145); Total Protein 7.5 g/dL (6.4-8.2)
[2018-08-01] MEDS: Omnipaque 350 MG/ML 100 ML BTL IV (14:42)
[2018-08-01] MEDS: Breeza Beverage 473 ML BTL PO (14:43)
[2018-08-01] MEDS: Omnipaque 350 MG/ML 50 ML BTL PO (14:44)
== END 2018-08-01 03:59 ==
PROVIDERS: PCP Nurse Practitioner; Visit Provider Nurse Practitioner
DX: R10.11 Right upper quadrant pain (principal); R07.81 Pleurodynia; K59.00 Constipation, unspecified
CPT/HCPCS: 80053; 85027; 74160; J3490; Q9967

== ENCOUNTER 2019-02-26 14:10 | Outpatient (REF) | payer MEDICAID, SELFPAY ==
[2019-02-26 19:35] LABS: TSH (W/Ref FT4) 3.13 uIU/mL (0.36-3.74)
== END 2019-02-26 14:30 ==
LOC: LBN 14:10
PROVIDERS: PCP Nurse Practitioner; Visit Provider Nurse Practitioner
DX: E03.9 Hypothyroidism, unspecified (principal)
CPT/HCPCS: 84443

== ENCOUNTER 2019-09-05 08:37 | Outpatient (CLI) | payer MEDICAID, SELFPAY ==
[2019-09-06 20:03] LABS: COVID-19 RT-PCR UVMMC Result Negative (Negative)
== END 2019-09-05 08:57 ==
PROVIDERS: PCP Nurse Practitioner; Visit Provider Nurse Practitioner
DX: R05 Cough (principal); R06.02 Shortness of breath
CPT/HCPCS: U0003

== ENCOUNTER 2020-03-10 12:03 | Outpatient (REF) | payer MEDICAID, SELFPAY ==
[2020-03-10 18:47] LABS: HCT 38.1 % (36.0-46.0); HGB 12.2 g/dL (11.2-15.7); MCH 28.4 pg (27.0-33.0); MCV 88.8 fL (80-95); MPV 10.5 fL (8.0-11.0); Platelet Count 322 10^3/uL (130-400); RBC 4.29 10^6/uL (3.93-5.22); RDW 14.7 % (11.7-14.6); RDW-SD 47.8 fL; WBC 5.36 10^3/uL (4.4-10.8)
[2020-03-10 18:49] LABS: ALT 11 U/L (14-59); AST 11 U/L (15-37); Albumin 3.7 g/dL (3.4-5.0); Alkaline Phosphatase 87 U/L (46-116); Anion Gap 10.8 mmol/L (3-11); BUN 19 mg/dL (7-18); Bilirubin, Total 0.2 mg/dL (0.2-1.0); CO2 25.2 mmol/L (21.0-32.0); Calcium 8.6 mg/dL (8.5-10.1); Calculated LDL 235 mg/dL (<100); Chloride 105 mmol/L (98-107); Cholesterol 325 mg/dL (<200); Glucose 88 mg/dL (74-106); HDL Cholesterol 49 mg/dL (40-60); Potassium 4.4 mmol/L (3.5-5.1); Sodium 141 mmol/L (136-145); TSH (W/Ref FT4) 23.23 uIU/mL (0.36-3.74); Total Protein 6.7 g/dL (6.4-8.2); Triglyceride 206 mg/dL (<150)
[2020-03-10 19:23] LABS: FREE T4 0.68 ng/dL (0.76-1.46)
== END 2020-03-10 12:23 ==
LOC: LBO 12:03
PROVIDERS: PCP Nurse Practitioner; Visit Provider Nurse Practitioner
DX: E03.9 Hypothyroidism, unspecified (principal); F41.8 Other specified anxiety disorders; I10 Essential (primary) hypertension; F32.9 Major depressive disorder, single episode, unspecified
CPT/HCPCS: 80053; 80061; 85027; 84439; 84443

== ENCOUNTER 2020-10-14 15:34 | Outpatient (REF) | payer MEDICAID, SELFPAY ==
[2020-10-14 16:29] LABS: Calculated LDL 220 mg/dL (<100); Cholesterol 308 mg/dL (<200); HDL Cholesterol 57 mg/dL (40-60); TSH (W/Ref FT4) 43.66 uIU/mL (0.36-3.74); Triglyceride 159 mg/dL (<150)
[2020-10-14 21:45] LABS: FREE T4 0.61 ng/dL (0.76-1.46)
== END 2020-10-14 15:35 | disposition home or self-care (01) ==
LOC: LBN 15:34
PROVIDERS: PCP Nurse Practitioner; Visit Provider Nurse Practitioner
DX: E03.9 Hypothyroidism, unspecified (principal); E78.00 Pure hypercholesterolemia, unspecified
CPT/HCPCS: 80061; 84439; 84443

== ENCOUNTER 2021-02-09 03:44 | Outpatient (CLI) | payer MEDICAID, SELFPAY ==
[2021-02-09 12:50] LABS: ALT 18 U/L (14-59); AST 12 U/L (15-37); Albumin 3.5 g/dL (3.4-5.0); Alkaline Phosphatase 113 U/L (46-116); Anion Gap 6.1 mmol/L (3-11); BUN 15 mg/dL (7-18); Bilirubin, Total 0.2 mg/dL (0.2-1.0); CO2 28.9 mmol/L (21.0-32.0); CREATININE 0.9 mg/dL (0.55-1.02); Calcium 8.8 mg/dL (8.5-10.1); Chloride 108 mmol/L (98-107); Glucose 89 mg/dL (74-106); Potassium 4.2 mmol/L (3.5-5.1); Sodium 143 mmol/L (136-145); TSH (W/Ref FT4) 0.08 uIU/mL (0.36-3.74); Total Protein 6.5 g/dL (6.4-8.2)
[2021-02-09 13:11] LABS: FREE T4 0.85 ng/dL (0.76-1.46)
== END 2021-02-09 03:45 | disposition home or self-care (01) ==
LOC: LBO 03:44
PROVIDERS: PCP Nurse Practitioner; Visit Provider Nurse Practitioner
DX: I10 Essential (primary) hypertension (principal); E03.9 Hypothyroidism, unspecified
CPT/HCPCS: 36415; 80053; 84439; 84443

== ENCOUNTER 2022-01-14 01:50 | Outpatient (CLI) | payer MEDICAID, SELFPAY ==
--- OUTSIDE RECORDS SUMMARY | 2022-01-14 02:02 | XMS_ITS | Encounter Summary ---
:1960 Author Organization [facility] Address [address] [place] [address] Care Team Providers Name Role Phone Julia Palm AWNING ASSEMBLER Primary Care Provider Encounter Details Date Type Department Care Team Description 07/05/2013 Hospital Encounter [facility] [place] [place] Unknown, Provider, [facility] [address] [facility] [phone] [place] [address] (Work) [phone] Social History Tobacco Use Types Packs/Day Years Used Date Never Assessed Sex Assigned at Date Recorded Not on file documented as of this encounter Discharge Disposition Disposition Code Departure Means Destination Home or Self Long-Term documented in this encounter Plan of Treatment Not on filedocumented as of this encounter Visit Diagnoses Not on filedocumented in this encounter Care Teams Duco Polisher Relationship Specialty Start Date End Date Julia Palm, AWNING ASSEMBLER PCP - General 11/12/09 07/09/[address] [place] [id number] documented as of this encounter
--- OUTSIDE RECORDS SUMMARY | 2022-01-14 02:02 | XMS_ITS | Encounter Summary ---
:1960 Author Organization [facility] [place] [address] Care Team Providers Name Role Phone Jann Pinon MD Primary Care Provider [phone] Encounter Details Date Type Department Care Team Description 04/14/2010 Office Visit Dermatology Luis Hardy MD [address] [facility] [address] DERMATOLOGY [place], [place] [address] [place] [address] [phone] (Wo rk) Social History Tobacco Use Types Packs/Day Years Used Date Never Assessed Sex Assigned at Date Recorded Not on file documented as of this encounter Plan of Treatment Not on filedocumented as of this encounter Visit Diagnoses Not on filedocumented in this encounter Care Teams Wire Frame Dipper Relationship Specialty Start Date End Date Jann Pinon MD PCP - General 03/23/10 [address] [place] [address] documented as of this encounter
--- OUTSIDE RECORDS SUMMARY | 2022-01-14 02:02 | XMS_ITS | Encounter Summary ---
:1960 Author Organization [facility] [place] [address] Care Team Providers Name Role Phone Jann Pinon MD Primary Care Provider [phone] Encounter Details Date Type Department Care Team Description 05/20/2011 Orders Only Orthopaed[facility] at [facility] Raheel Fair, S/P hip replacement [facility] (Primary Dx) [place] [address] ORTHOPAEDIC SURGERY [place] [id number] Social History Tobacco Use Types Packs/Day Years Used Date Never Assessed Sex Assigned at Date Recorded Not on file documented as of this encounter Plan of Treatment Not on filedocumented as of this encounter Visit Diagnoses Diagnosis S/P hip replacement - Primary Hip joint replacement by other means documented in this encounter Care Teams Client Development Consultant Relationship Specialty Start Date End Date Jann Pinon MD PCP - General 03/23/10 [facility] [place] [address] documented as of this encounter
--- OUTSIDE RECORDS SUMMARY | 2022-01-14 02:02 | XMS_ITS | Encounter Summary ---
:1960 Author Organization [facility] Address [address] [place] [address] Care Team Providers Name Role Phone NéstorJulia CHANGE MANAGEMENT COORDINATOR Primary Care Provider Encounter Details Date Type Department Care Team Description 07/05/2013 Results Only [facility] Austin Aguayo , Laboratory Services - [address] SM[address] [place] [address] [place], [place] [id number] [phone] Social History Tobacco Use Types Packs/Day Years Used Date Never Assessed Sex Assigned at Date Recorded Not on file documented as of this encounter Plan of Treatment Not on filedocumented as of this encounter Procedures Procedure Name Priority Date/Time Associated Diagnosis Comme [facility] SURGICAL PATHOLOGY Routine 07/05/2013 18:49 Resul ts for this EST procedure are i n the results section. documented in this encounter Results SURGICAL PATHOLOGY (07/05/2013 18:49 EST) Pathology Report: SURGICAL PATHOLOGY REPORT [facility] Reports generated via electronic interface contain matthew ginal data; LAB however they are lacking the format of the original re port. Caution should be taken when reading/interpreting unfo rmatted reports. Name: ? RAHEL GIL ? Accession #: ? [id number] ? : ? 1960 (Age: 52) ??F ? Collect Date: ? 07/05/2013 ? Location: ? [facility] ? Receive Date: ? 014 ? Provider: AUSTIN AGUAYO DO Copy to: ELDON ANDRZEJ COOK [employer] ? Final Pathologic Diagnosis: A. STOMACH, ANTRUM, BIOPSY: - ??Antral mucosa with no specific pathologic features . B. ESOPHAGUS, DISTAL, BIOPSY: - ??Squamous and gastric foveolar mucosa with focal in testinal metaplasia. - ??Negative for dysplasia. Document reviewed and electronically signed by: CHUY HACKETT MD Report ??Date: 07/08/2013 16:51 By the signature above, the attending physician certif ies that he/she has personally conducted a gross and/or microscopic examin ation of the described specimens and rendered or confirmed the above diagnosi s. Specimen(s) Received: A. ??Gastric antrum (#1) B. ??Distal esophagus (#2) Clinical History: H/O Valladares's esophagus Gross Description: A. ?Received in formalin labelled with proper p atient identification (initials A, W) and 1. gastric antrum are two pink-hodgson tissues (0.3 x 0.2 x 0.1 cm and 0.7 x 0.2 x 0.1 cm). Entirely submitted in A1. B. ?Received in formalin labelled with proper p atient identification (initials A, W) and 2. dist al esophagus are three pink-hodgson tissues (0.4 x 0.3 x 0.1 cm to 0.7 x 0.1 x 0.1 cm). Entirely submitted in B1. Dr. Mehta 07/06/2013 08:42 AM End of Report Specimen Performing Organization Address City/State/ZIP Code Phon e Number [facility] [address] [place] [address] [facility] [address] [place] [address] documented in this encounter Visit Diagnoses Not on filedocumented in this encounter Care Teams Domestic Housekeeper Relationship Specialty Start Date End Date Julia Palm, CHANGE MANAGEMENT COORDINATOR PCP - General 11/12/09 07/09/13 [address] [facility] [address] [place] [phone] documented as of this encounter
--- OUTSIDE RECORDS SUMMARY | 2022-01-14 02:02 | XMS_ITS | Encounter Summary ---
:1960 Author Organization [facility] Address [address] [place] [address] Care Team Providers Name Role Phone Julia Lawson EXPLORATION ENGINEER Primary Care Provider Encounter Details Date Type Department Care Team Description 04/29/2010 Results Only [facility] Julia Rahman MD Laboratory Services - [address] [place] [address] [place] [id number] Social History Tobacco Use Types Packs/Day Years Used Date Never Assessed Sex Assigned at Date Recorded Not on file documented as of this encounter Plan of Treatment Not on filedocumented as of this encounter Procedures Procedure Name Priority Date/Time Associated Diagnosis Comme [facility] SURGICAL PATHOLOGY Routine 04/29/2010 0:00 EST Re sults for this procedure are i n the results section. documented in this encounter Results SURGICAL PATHOLOGY (04/29/2010 0:00 EST) Pathology Report: SURGICAL PATHOLOGY REPORT ? [facility] Reports generated via electr Sq[employer] interface contain original data; ? LAB however they are lacking the format of the original report. ? Caution should be taken when reading/interpreting unformatted reports. ? Name: ? RAHEL GIL ? Accession #: ? [id number] ? : ? 1960 (Age: 49) ??F ? Collec t Date: ? 04/29/2010 ? Location: ? [facility] ? R eceive Date: ? 04/30/2010 ? Provider: JULIA SUZANNE MD ? Copy to: JULIA L LAWSON N P ? Final Pathologic Diagnosis: ? Endometrium, biopsy: ? 1. ?Scant benig n strips of inactive endometrium. ??See comment. ? 2. ? Benign endocervical glands. ? 3. ? Benign squamous epi thelium. ? Comment: ? Deeper levels have be en examined. ??(Dr. Gill)/[facility] ? Document reviewed and electr onically signed by: ? KALA [facility]ZALEZ [facility] ? Report ??Date: 05/05/2010 16 :17 ? By the signature above, the attending physician certifies that he/she has ? personally conducted a gross and/or microscopic examination of the described ? specimens and rendered or co nfirmed the above diagnosis. ? Specimen(s) Received: ? Endo bx ? Clinical History: ? Endomet. on Pap, LMP: 11/29/ ? Gross Description: ? Received in formalin labelled Luigi, Rahel and endometrial biopsy ?? is a 1.0 x 0.8 x 0.2 cm aggr egate of pal-hodgson tissue fragments admixed with ? mucus. ??The specimen is maurizio tered and entirely submitted in a single cassette. ?? (Atul Turner)/mpl ? (Atul Turner)/mpl ? End of Report ? Specimen Performing Organization Address City/State/ZIP Code Phon e Number [facility] [address] [place] [address] [facility] [address] [place] [address] documented in this encounter Visit Diagnoses Not on filedocumented in this encounter Care Teams Structural Steel Erection Supervisor Relationship Specialty Start Date End Date Julia Lawson, EXPLORATION ENGINEER PCP - General 11/12/09 07/09/[address] [facility] [address] [place] [phone] documented as of this encounter
--- OUTSIDE RECORDS SUMMARY | 2022-01-14 02:02 | XMS_ITS | Encounter Summary ---
:1960 Author Organization [facility] Address [address] [place] [address] Care Team Providers Name Role Phone Kinga Glaser ELECTRICAL CONTINUITY TESTER Primary Care Provider [phone] Encounter Details Date Type Department Care Team Description 05/25/2017 Results Only [facility]- Lona Manuel NP [phone] [address] [place] [address] (Wo rk) Social History Tobacco Use Types Packs/Day Years Used Date Never Assessed Sex Assigned at Date Recorded Not on file documented as of this encounter Plan of Treatment Not on filedocumented as of this encounter Procedures Procedure Name Priority Date/Time Associated Diagnosis Comme nts PAP TEST- RESULT Routine 05/25/2017 0:00 EST Resu lts for this ONLY procedure are i n the results section. documented in this encounter Results PAP TEST- RESULT ONLY (05/25/2017 0:00 EST) Pathology Report: CYTOPATHOLOGY REPORT [facility] Reports generated via electronic interface contain matthew ginal data; SERVICES however they are lacking the format of the original re port. Caution should be taken when reading/interpreting unfo rmatted reports. Name: ? RAHEL GIL ? Accession #: ? [id number] ? : ? 1960 (Age: [age]) ??F ?Collect Date: ? 05/25/2017 ? Location: ? [facility] ? Receive Date: ? 05/26/19 18 ? Provider: LONA BEAVERS POND WORKER Copy to: ? Final Report SPECIMEN ADEQUACY ? Satisfactory for Evaluation - transformation zone component present GENERAL CATEGORIZATION ? Negative for Intraepithelial Lesion or Malignan cy ?? Specimen/Source: ??Pap Test, Cervix, ThinPrep Imaging System with manual evaluation Document reviewed and electronically signed by: ? Grace Tinajero, CT(ASCP) ? Report ??Date: 06/05/2017 10:09 HPV with Pap Test ? Date Ordered: ? 06/07/2017 ? Status: ?? S igned Out ?Date Complete: ? 06/09/2017 ? By: ??Sys tem Interface ? Date Reported: ? 06/09/2017 ? Interpretation RESULT: Negative for HPV. No E6 or E7 mRNA is detected from HPV types 16,18,31,3 3,35, 39,45,51,52,56,58,59,66, and 68 by aircraft power plant assembler media shayla amplification. Comments Document reviewed and electronically signed by: ? System Interface ? Report date: 06/09/2017 By the signature above, the attending physician certif ies that he/she has personally conducted a gross and/or microscopic examin ation of the described specimens and rendered or confirmed the above diagnosi s. End of Report Specimen Performing Organization Address City/State/ZIP Code Phon e Number [facility] [address] [place] [address] SERVICES documented in this encounter Visit Diagnoses Not on filedocumented in this encounter Care Teams Fur Cutter Relationship Specialty Start Date End Date Kinga Glaser, ADRIAN PCP - General 07/10/[address] [place] [address] documented as of this encounter
--- OUTSIDE RECORDS SUMMARY | 2022-01-14 02:02 | XMS_ITS | Clinical Summary ---
:[address] [facility] Address [address] [place] [address] Care Team Providers Name Role Phone Kinga Glaser ADMISSIONS EVALUATOR Primary Care Provider [phone] Social History Tobacco Use Types Packs/Day Years Used Date Never Assessed Sex Assigned at Date Recorded Not on file Plan of Treatment Health Maintenance Due Date Last Done Comments COVID-19 Vaccine (1) 1972 Insurance Payer Benefit Plan Subscriber ID Effective Phone Address Typ e / Group Dates MEDICAID ACO MEDICAID ACO [id number] 2019-Pres [phone] [address] Medicaid [place] [address], [place] [address] Care Teams Director Check Relationship Specialty Start Date End Date Kinga Glaser APRN PCP - General 07/10/13 [address] [place], [place] [address]
--- OUTSIDE RECORDS SUMMARY | 2022-01-14 02:02 | XMS_ITS | Encounter Summary ---
:1960 Author Organization [facility] Address [address] [place] [address] Care Team Providers Name Role Phone Julia Lawson BRIQUETTE MACHINE OPERATOR Primary Care Provider Encounter Details Date Type Department Care Team Description 03/10/2010 Results Only [facility] Haleigh Lawson, BRIQUETTE MACHINE OPERATOR Laboratory Services - [address] [place], [place] [address] [place] [address] [place] [address] [phone] Social History Tobacco Use Types Packs/Day Years Used Date Never Assessed Sex Assigned at Date Recorded Not on file documented as of this encounter Plan of Treatment Not on filedocumented as of this encounter Procedures Procedure Name Priority Date/Time Associated Diagnosis Comme nts CYTOPATHOLOGY Routine 03/10/2010 0:00 EST Results for this procedure are i n the results section . documented in this encounter Results CYTOPATHOLOGY (03/10/2010 0:00 EST) Pathology Report: CYTOPATHOLOGY REPORT ? [facility] ? LAB Reports generated via electr onic interface contain original data; ? however they are lacking the format of the original report. ? Caution should be taken when reading/interpreting unformatted reports. ? Name: ? RAHEL GIL ? Accession #: ? [id number] ? : ? 1960 (Age: 49) ??F ?Collect Date: ? 03/10/2010 ? Location: ? [facility] ? R eceive Date: ? 03/12/2010 ? Provider: JULIA L LAWSON BRIQUETTE MACHINE OPERATOR ? Copy to: ? Final Report ? SPECIMEN ADEQUACY ? Satisfactory for Eval uation ? - transformation zone compon ent present ? GENERAL CATEGORIZATION ? Other, see interpreta tion ? INTERPRETATION ? Endometrial cells pre sent in a woman equal to or greater than age 40. ? Negative for Intraepithelial Lesion. ? EDUCATIONAL NOTES/RECOMMENDA TIONS ? Benign appearing endo metrial cells on Pap tests are usually a normal ? finding in women with regula r menstrual cycles, especially if the Pap test was ?? collected during the first h senior living of the menstrual cycle. ? There is data showing that e ndometrial cells on Pap tests may be associated with endometrial/uterine abnormal ities in post menopausal women or in perimenopausal women with abnormal bleeding . ? There is limited data on the significance of benign endometrial cells in post ?? menopausal women on HRT. ??C linical correlation is recommended. ? Note: ??The Pap test is not an accurate test for the screening of endometrial ? lesions and should not be us ed as a follow up in patients with clinical ? suspicion of endometrial pat hology. ? Last Menstural Period: 7/10/ 10 ? Specimen/Source: ??Pap Test, Endocervix, ThinPrep Imaging System with manual ? evaluation ? Document reviewed and electr onically signed by: ? Dutch Montero, CT( CP) ? Report ??Date: 11/17/ 2010 10:01 ? HPV with Pap Test ? Date Ordered: ? 1 05/17/2009 ? Status: ?? Signed Out ?Date Complete: ? 03/22/2010 ? By: ??System Interface ? Date Reported: ? 03/22/2010 ? Interpretation ? RESULT: Negative for HPV typ es 16, 18, 31, 33, 35, 39, 45, 51, 52, ? 56, 58, 59, and 68. ? Comments ? Document reviewed and electr onically signed by: ? System Interface ? Report date: 03/22/20 10 ? By the signature above, the attending physician certifies that he/she has ? personally conducted a gross and/or microscopic examination of the described ? specimens and rendered or co nfirmed the above diagnosis. ? End of Report ? Specimen Performing Organization Address City/State/ZIP Code Phon e Number [facility] [address] [place] [address] SERVICES [facility] [address] [place] [address] documented in this encounter Visit Diagnoses Not on filedocumented in this encounter Care Teams Cable Installation Technician Relationship Specialty Start Date End Date Julia Lawson NP PCP - General 11/12/09 07/09/13 [address] [place] [address] documented as of this encounter
--- OUTSIDE RECORDS SUMMARY | 2022-01-14 02:02 | XMS_ITS | Encounter Summary ---
:1960 Author Organization [facility] Address [address] [place] [address] Care Team Providers Name Role Phone Unavailable Primary Care Provider Unavailable Encounter Details Date Type Department Care Team Description 11/10/2009 Results Only [facility] Austin Omer , Laboratory Services - [address] [place] [address] [place], [place] [address] [phone] Social History Tobacco Use Types Packs/Day Years Used Date Never Assessed Sex Assigned at Date Recorded Not on file documented as of this encounter Plan of Treatment Not on filedocumented as of this encounter Procedures Procedure Name Priority Date/Time Associated Diagnosis Comme [facility] SURGICAL PATHOLOGY Routine 11/10/2009 0:00 EDT Re sults for this procedure are i n the results section. documented in this encounter Results SURGICAL PATHOLOGY (11/10/2009 0:00 EDT) Pathology Report: SURGICAL PATHOLOGY REPORT ? [facility] Reports generated via [employer] interface contain original data; ? LAB however they are lacking the format of the original report. ? Caution should be taken when reading/interpreting unformatted reports. ? Name: ? RAHEL GIL ? Accession #: ? [id number] ? : ? 1960 (Age: 49) ??F ? Collec t Date: ? 11/10/2009 ? Location: ? [facility] ? R eceive Date: ? 11/10/2009 ? Provider: AUSTIN YO SON DO ? Copy to: NGHIA L LAWSON N P ? Final Pathologic Diagnosis: ? A. ?Stomach, an trum, biopsy: ? 1. ?Antral muco sa without significant abnormality. ? 2. ? No Helicobacter pyl matthew-like microorganisms identified on H&E stained ? sections. ? B. ?Esophagus, distal, biopsies: ? 1. ?Squamocolum sathish junctional mucosa with reactive epithelial changes. ?? 2. ? Negative for intest inal metaplasia/dysplasia. ? C. ?Esophagus, mid, biopsies: ? 1. ?Squamous mu cosa with mild reactive epithelial changes. ? D. ?Esophagus, proximal, biopsy: ? 1. ?Squamous mu cosa without significant abnormality. ? Document reviewed and electr onically signed by: ? Aiyana Dukes MD ? Report ??Date: 11/12/2009 12 :12 ? By the signature above, the attending physician certifies that he/she has ? personally conducted a gross and/or microscopic examination of the described ? specimens and rendered or co nfirmed the above diagnosis. ? Specimen(s) Received: ? A. ?Bx antrum ( #1) ? B. ? Bx distal esophagus (#2) ? C. ? Bx mid esophagus (# 3) ? D. ? Bx proximal esophag us (#4) ? Clinical History: ? H/O Valladares's esophag us ? Gross Description: ? Received in [facility]' s fixative labelled Rahel Gil and bx antrum is a hodgson-pink, 0.4 x 0.3 x 0 .2 cm, soft tissue fragment. ??The specimen is ? entirely submitted as (A). ? Received in [facility]'s fixat ash labelled Rahel Gil and bx distal ? esophagus are four hodgson-pink soft tissues ranging from 0.2 x 0.2 x 0.2 cm to 0.6 x 0.2 x 0.2 cm. ??The specim en is entirely submitted as (B1) and (B2). ? Received in [facility]'s fixat ash labelled Rahel Gil and bx mid ? esophagus are two hodgson-pink soft tissues measuring 0.3 x 0.2 x 0.2 cm and 0.5 x 0.2 x 0.2 cm. ??The specimen is entirely submitted as (C). ? Received in [facility] fixat ash labelled Luigi, Rahel and bx proximal ? esophagus is a hodgson-pink, 0. 3 x 0.3 x 0.3 cm, soft tissue fragment. ??The ? specimen is entirely submitt ed as (D). ??(Ashley Potter)/junok ? End of Report ? Specimen Performing Organization Address City/State/ZIP Code Phon e Number [facility] [address] [place] [address] SERVICES [facility] [address] [place] [address] documented in this encounter Visit Diagnoses Not on filedocumented in this encounter
--- OUTSIDE RECORDS SUMMARY | 2022-01-14 02:02 | XMS_ITS | Encounter Summary ---
:1960 Author Organization [place] [address] Care Team Providers Name Role Phone Jann Pinon MD Primary Care Provider [phone] Encounter Details Date Type Department Care Team Description 04/07/2010 Office Visit Dermatology Luis Hardy MD [address] [facility] [address] DERMATOLOGY [place], [place] [address] [address] [place] [address] [phone] (Wo rk) Social History Tobacco Use Types Packs/Day Years Used Date Never Assessed Sex Assigned at Date Recorded Not on file documented as of this encounter Plan of Treatment Not on filedocumented as of this encounter Visit Diagnoses Not on filedocumented in this encounter Care Teams Shirt Presser Relationship Specialty Start Date End Date Jann Pinon MD PCP - General 03/23/10 [address] [place] [address] documented as of this encounter
--- OUTSIDE RECORDS SUMMARY | 2022-01-14 02:03 | XMS_ITS | Encounter Summary ---
:1960 Author Organization [facility] Address [address] [place] [address] Care Team Providers Name Role Phone Julia Lawson PUBLIC HEALTH INSPECTOR Primary Care Provider Encounter Details Date Type Department Care Team Description 01/18/2005 Results Only [facility] - Ellen Camejo son, Julia Onofre, PUBLIC HEALTH INSPECTOR conversion [address] [place] [phone] (Wo rk) Social History Tobacco Use Types Packs/Day Years Used Date Never Assessed Sex Assigned at Date Recorded Not on file documented as of this encounter Plan of Treatment Not on filedocumented as of this encounter Procedures Procedure Name Priority Date/Time Associated Diagnosis Comme nts CYTOPATHOLOGY Routine 01/18/2005 0:00 EDT Results for this procedure are i n the results section . documented in this encounter Results CYTOPATHOLOGY (01/18/2005 0:00 EDT) Pathology Report: CYTOPATHOLOGY REPORT [facility] Reports generated via electronic interface contain matthew ginal data; however they are lacking the format of the original re port. Caution should be taken when reading/interpreting unfo rmatted reports. Name: ? RAHEL GIL ? Accession #: ? [id number] : ? 1960 (Age: 44) ??F ?Collect Date: ? 12/31 Location: ? [facility] ? Receive Date : ? 01/20/2005 Provider: ?JULIA LAWSON PUBLIC HEALTH INSPECTOR Copy to: ? Specimen/Source: ? ThinPrep Pap Test, Cervix, processed on [employer] ThinPrep Imaging System, with manual evaluation Last Menstrual Period: ? 01/09/05 Other: ? HPVA - HPV testing requested if ASC-US on the current ThinPrep Pap test. ? SPECIMEN ADEQUACY ? Satisfactory for Evaluation - transformation zone component present GENERAL CATEGORIZATION ? Negative for Intraepithelial Lesion or Malignan cy ? Document reviewed and electronically signed by: ? ALEXA Rosado(ASCP) ? Report Date: ??01/26/2005 16:06 End of Report Specimen Performing Organization Address City/State/ZIP Code Phon e Number [facility] [address] [place] [address] SERVICES [facility] [address] [place] [address] documented in this encounter Visit Diagnoses Not on filedocumented in this encounter Care Teams Tax Expert Relationship Specialty Start Date End Date Julia Lawson NP PCP - General 11/12/09 07/09/[address] [place] [phone] documented as of this encounter
--- OUTSIDE RECORDS SUMMARY | 2022-01-14 02:03 | XMS_ITS | Encounter Summary ---
:1960 Author Organization [facility] Address [address] [place] [address] Care Team Providers Name Role Phone Julia Lawson CLAIMS ADMINISTRATOR Primary Care Provider Encounter Details Date Type Department Care Team Description 01/26/2006 Results Only [facility] - Ellen Camejo son, Julia Onofre, CLAIMS ADMINISTRATOR conversion [address] [place] [phone] (Wo rk) Social History Tobacco Use Types Packs/Day Years Used Date Never Assessed Sex Assigned at Date Recorded Not on file documented as of this encounter Plan of Treatment Not on filedocumented as of this encounter Procedures Procedure Name Priority Date/Time Associated Diagnosis Comme nts CYTOPATHOLOGY Routine 01/26/2006 0:00 EDT Results for this procedure are i n the results section . documented in this encounter Results CYTOPATHOLOGY (01/26/2006 0:00 EDT) Pathology Report: CYTOPATHOLOGY REPORT [facility] Reports generated via electronic interface contain matthew ginal data; however they are lacking the format of the original re port. Caution should be taken when reading/interpreting unfo rmatted reports. Name: ? RAHEL GIL ? Accession #: ? [id number] : ? 1960 (Age: 45) ??F ?Collect Date: ? 12/31 Location: ? [facility] ? Receive Date : ? 01/27/2006 Provider: ?JULIA LAWSON CLAIMS ADMINISTRATOR Copy to: ? Specimen/Source: ? ThinPrep Pap Test, Cervix/Endocervix, processed on [employer] ThinPrep Imaging System, with manual evaluation Last Menstrual Period: ? 01/06/06 Other: ? HPVA - HPV testing requested if ASC-US on the current ThinPrep Pap test. ? SPECIMEN ADEQUACY ? Satisfactory for Evaluation - transformation zone component present GENERAL CATEGORIZATION ? Negative for Intraepithelial Lesion or Malignan cy ? Document reviewed and electronically signed by: ? Annamaria New, SCT(ASCP) ? Report Date: ??02/02/2006 08:08 End of Report Specimen Performing Organization Address City/State/ZIP Code Phon e Number [facility] [address] [place] [address] SERVICES [facility] [address] [place] [address] documented in this encounter Visit Diagnoses Not on filedocumented in this encounter Care Teams Industrial Gas Fitter Helper Relationship Specialty Start Date End Date Julia Lawson NP PCP - General 11/12/09 07/09/[address] [place] [phone] documented as of this encounter
--- OUTSIDE RECORDS SUMMARY | 2022-01-14 02:03 | XMS_ITS | Encounter Summary ---
:1960 Author Organization [facility] Address [address] [place] [address] Care Team Providers Name Role Phone Unavailable Primary Care Provider Unavailable Encounter Details Date Type Department Care Team Description 03/04/2009 Orders Only [facility] Haleigh Palm NP Laboratory Services - [address] [place], [place] [address] [facility] [address] [place] [address] [phone] Social History Tobacco Use Types Packs/Day Years Used Date Never Assessed Sex Assigned at Date Recorded Not on file documented as of this encounter Plan of Treatment Not on filedocumented as of this encounter Procedures Procedure Name Priority Date/Time Associated Diagnosis Comme [facility] CYTOPATHOLOGY Routine 03/04/2009 0:00 EST Results for this procedure are i n the results section . documented in this encounter Results CYTOPATHOLOGY (03/04/2009 0:00 EST) Pathology Report: CYTOPATHOLOGY REPORT ? [facility] ? LAB Reports generated via [employer] interface contain original data; ? however they are lacking the format of the original report. ? Caution should be taken when reading/interpreting unformatted reports. ? Name: ? RAHEL GIL ? Accession #: ? [id number] ? : ? 1960 (Age: 48) ??F ?Collect Date: ? 03/04/2009 ? Location: ? [facility] ? Receive Date: ? 03/05/2009 ? Provider: ?NGHIA L R OBINSON FENDER FINISHER ? Copy to: ? Specimen/Source: ? Pap Test, Endocervix, ThinPrep Imaging System with ? manual evaluation ? Last Menstrual Period: ? 6/4/09 ? Other: ? HPVA - HPV testing requested if ASC-US on the current ThinPrep Pap test. ? SPECIMEN ADEQUACY ? Satisfactory for Eval uation ? - transformation zone compon ent present ? GENERAL CATEGORIZATION ? Negative for Intraepi thelial Lesion or Malignancy ? INTERPRETATION ? Reactive cellular yonatan nges associated with inflammation present (includes ?? repair). ? Document reviewed and electr onically signed by: ? Joyce J. Figueredo, MD P hD ? Report Date: ??11/12/ 2009 12:51 ? End of Report ? Specimen Performing Organization Address City/State/ZIP Code Phon e Number [facility] [address] [place] [address] SERVICES [facility] [address] [place] [address] documented in this encounter Visit Diagnoses Not on filedocumented in this encounter
--- OUTSIDE RECORDS SUMMARY | 2022-01-14 02:03 | XMS_ITS | Encounter Summary ---
:1960 Author Organization [facility] Address [address] [place] [address] Care Team Providers Name Role Phone Julia Lawson HISTORIOGRAPHY TEACHER Primary Care Provider Encounter Details Date Type Department Care Team Description 01/14/2004 Results Only [facility] - Ellen Camejo son, Julia Onofre, HISTORIOGRAPHY TEACHER conversion [address] [place] [phone] (Wo rk) Social History Tobacco Use Types Packs/Day Years Used Date Never Assessed Sex Assigned at Date Recorded Not on file documented as of this encounter Plan of Treatment Not on filedocumented as of this encounter Procedures Procedure Name Priority Date/Time Associated Diagnosis Comme nts CYTOPATHOLOGY Routine 01/14/2004 0:00 EDT Results for this procedure are i n the results section . documented in this encounter Results CYTOPATHOLOGY (01/14/2004 0:00 EDT) Pathology Report: CYTOPATHOLOGY REPORT [facility] Reports generated via electronic interface contain matthew ginal data; however they are lacking the format of the original re port. Caution should be taken when reading/interpreting unfo rmatted reports. Name: ? RAHEL GIL ? Accession #: ? [id number] : ? 1960 (Age: 43) ??F ?Collect Date: ? 12/30 Location: ? [facility] ? Receive Date : ? 01/16/2004 Provider: ?JULIA LAWSON HISTORIOGRAPHY TEACHER Copy to: ? Specimen/Source: ?ThinPrep Pap Test, Cervix/ Endocervix Last Menstrual Period: ? 01/09/04 ? SPECIMEN ADEQUACY ? Satisfactory for Evaluation - transformation zone component present GENERAL CATEGORIZATION ? Other, see interpretation INTERPRETATION ? Endometrial cells present in a woman equal to o r greater than age 40. Negative for Intraepithelial Lesion or Malignancy. EDUCATIONAL NOTES/RECOMMENDATIONS ? Benign appearing endometrial cells on Pap tests are usually a normal finding in women with regular menstrual cycles, especially if the Pap test was collected during the first half of the menstrual cycle . There is data showing that e ndometrial cells on Pap tests may be associated with endometrial/uterine abnormal ities in post menopausal women or in perimenopausal women with abnormal bleeding. There is limited data on the significance of cindy ign endometrial cells in post menopausal women on HRT. ??Clinical correlation is rec ommended. Note: ??The Pap test is not an accurate test for the screening of endometrial lesions and should not be used as a follow up in patie nts with clinical suspicion of endometrial pathology. ? Document reviewed and electronically signed by: ? Agnes Momin [facility](ASCP) ? Report Date: ??01/22/2004 10:12 End of Report Specimen Performing Organization Address City/State/ZIP Code Phon e Number [facility] [address] [place] [address] SERVICES [facility] [address] [place] [address] documented in this encounter Visit Diagnoses Not on filedocumented in this encounter Care Teams Machine Fitter Relationship Specialty Start Date End Date Julia Lawson NP PCP - General 11/12/09 07/09/13 [address] [place] [address] documented as of this encounter
--- OUTSIDE RECORDS SUMMARY | 2022-01-14 02:03 | XMS_ITS | Encounter Summary ---
:1960 Author Organization [facility] Address [address] [place] [address] Care Team Providers Name Role Phone Unavailable Primary Care Provider Unavailable Encounter Details Date Type Department Care Team Description 08/22/2002 Results Only [facility] - Ellen Camejo son, Julia Onofre, HAND WOOD SANDER conversion [address] [place] [phone] (Wo rk) Social History Tobacco Use Types Packs/Day Years Used Date Never Assessed Sex Assigned at Date Recorded Not on file documented as of this encounter Plan of Treatment Not on filedocumented as of this encounter Procedures Procedure Name Priority Date/Time Associated Diagnosis Comme nts CYTOPATHOLOGY Routine 08/22/2002 0:00 EDT Results for this procedure are i n the results section . documented in this encounter Results CYTOPATHOLOGY (08/22/2002 0:00 EDT) Pathology Report: CYTOPATHOLOGY REPORT [facility] Reports generated via electronic interface contain matthew ginal data; however they are lacking the format of the original re port. Caution should be taken when reading/interpreting unfo rmatted reports. Name: ? RAHEL GIL ? Accession #: ? [id number] : ? 1960 (Age: 42) ??F ?Collect Date: ? 07/31 Location: ? [facility] ? Receive Date : ? 08/26/2002 Provider: ?JULIA LAWSON HAND WOOD SANDER Copy to: ? Specimen/Source: ?ThinPrep Pap Test, Cervix/ Endocervix Last Menstrual Period: ? 08/12/02 ? SPECIMEN ADEQUACY ? Satisfactory for Evaluation - transformation zone component present GENERAL CATEGORIZATION ? Negative for Intraepithelial Lesion or Malignan cy ? Document reviewed and electronically signed by: ? ALEXA Foy(ASCP) ? Report Date: ??09/06/2002 15:00 End of Report Specimen Performing Organization Address City/State/ZIP Code Phon e Number [facility] [address] [place] [address] SERVICES [facility] [address] [place] [address] documented in this encounter Visit Diagnoses Not on filedocumented in this encounter
[2022-01-14 10:00] LABS: ALT 19 U/L (14-59); AST 14 U/L (15-37); Albumin 3.4 g/dL (3.4-5.0); Alkaline Phosphatase 103 U/L (46-116); Anion Gap 8.1 mmol/L (3-11); BUN 17 mg/dL (7-18); Bilirubin, Total 0.2 mg/dL (0.2-1.0); CO2 26.9 mmol/L (21.0-32.0); Chloride 108 mmol/L (98-107); Estimated GFR 64.09 (mL/min/1.73m2); Glucose 95 mg/dL (74-106); Potassium 3.4 mmol/L (3.5-5.1); Sodium 143 mmol/L (136-145); TSH (W/Ref FT4) 0.03 uIU/mL (0.36-3.74); Total Protein 7.1 g/dL (6.4-8.2)
[2022-01-14 10:26] LABS: FREE T4 1.16 ng/dL (0.76-1.46)
[2022-01-14 10:38] LABS: Calculated LDL 104 mg/dL (<100); Cholesterol 184 mg/dL (<200); HDL Cholesterol 49 mg/dL (40-60); Triglyceride 158 mg/dL (<150)
[2022-01-16 14:01] LABS: HIV-1/2 Ag & Ab Screen Negative (Negative)
== END 2022-01-14 01:51 | disposition home or self-care (01) ==
LOC: LBO 01:50
PROVIDERS: PCP Nurse Practitioner; Referring Provider Nurse Practitioner; Visit Provider Nurse Practitioner
DX: E03.9 Hypothyroidism, unspecified (principal); E78.00 Pure hypercholesterolemia, unspecified; Z11.59 Encounter for screening for other viral diseases; F32.9 Major depressive disorder, single episode, unspecified; I10 Essential (primary) hypertension
CPT/HCPCS: 36415; 80053; 80061; 87389; 84439; 84443

== ENCOUNTER → 2022-03-01 01:55 | Outpatient (CLI) | payer MEDICAID, SELFPAY ==
--- NOTE | 2022-03-01 07:15 | DI.CTLCSR_ITS ---
Exam(s) CT CHEST LUNG CANCER SCREEN EXAM: CT CHEST LUNG CANCER SCREEN CLINICAL HISTORY: Screening for lung cancer,current smoker, F17.210. TECHNIQUE: Imaging Protocol: Low Dose Technique CONTRAST MATERIAL: None COMPARISON: Scanned documents from 07/17/[address] ABDOMEN W from 08/01/2018 FINDINGS: CHEST: LUNGS: There are no ominous pulmonary nodules. There are no confluent infiltrates. No pleural effusi ons. MEDIASTINUM: There is no obvious hilar nor mediastinal adenopathy. CARDIAC: Heart size is normal. There is no pericardial effusion.Caliber of the thoracic aorta is wit hin normal limits. OTHER: OSSEOUS: No significant osseous lesions.. IMPRESSION: 1. No significant pulmonary nodules. No infiltrates nor pleural effusions. 2. No intrathoracic adenopathy. 3. Lung RADS Cat 1 - Negative: No nodules and definitely benign nodules Lung-RADS 1.0 CATEGORIES: Category 0 - Prior chest CT exam(s) being located for comparison. Category 1 - Annual screening in 12 months. No nodules or definitely benign nodules. Category 2 - Annual screening in 12 months. Benign appearance. Nodules with low likelihood of becomin g active cancer. Category 3 - 6-month follow-up. Probably benign. Short-term follow-up suggested. Nodules with low lik elihood of becoming active cancer. Category 4A - 3-month follow-up and CT/PET if >8 mm in size. Suspicious finding. Findings which requi re additional testing. Category 4B - Findings which require additional testing and tissue sampling. Category 4X - Category 3 or 4 nodules with additional features or imaging findings that increases the suspicion of malignancy. Modifier S- Potentially clinically significant findings (non lung cancer) RADIATION DOSE DELIVERED: Total DLP !Error CTDIvol DATA REPOSITORY: All CT scans at this facility are submitted to the National Radiology Data Registry (NRDR) Dose Index Registry (DIR) with the [employer] (ACR). RADIATION OPTIMIZATION: All CT scans at this facility use at least one of these dose optimization te chniques: automated exposure control; mA and/or kV adjustment per patient size (includes targeted exa ms where dose is matched to clinical indication); or iterative reconstruction.
--- NOTE | 2022-03-01 07:15 | DI.US_ITS ---
Exam(s) US THYROID EXAM: US THYROID CLINICAL HISTORY: enlarged thyroid, hypothyroidism,e03.9,e04.9. TECHNIQUE: Ultrasound thyroid performed using standard protocol. COMPARISON: None. FINDINGS: The thyroid gland is not enlarged. Both thyroid lobes exhibit measurements well within normal limits . However, both lobes exhibit diffuse heterogeneous echotexture. There is a solitary nodule which i s in the inferior half of the right lobe, measuring less than 1 cm. RIGHT THYROID LOBE: Measures 0.8 cm AP x 1.2 cm wide x 3.6 cm craniocaudal The characteristics of the solitary right sided nodule are as follows Size: Measures 0.6 x 0.5 x 0.6 cm Composition: Solid-2 points Echogenicity: Hyperechoic compared to surrounding parenchyma-1 point Shape: Not taller than wider in the transverse plane-0 points Margin: Slightly lobulated-2 points Echogenic Foci: None-0 points Total Points for this nodule: 5 ACR Ti-Rads Category: TR4 ISTHMUS: No nodules in the isthmus. LEFT THYROID LOBE: Measures 0.8 cm AP x 0.8 wide x 3.2 cm craniocaudal No nodules evident in the left lobe. LYMPH NODES: There are multiple bilateral benign-appearing lymph nodes in both jugular chains. The l argest on the right side measures up to 2 cm. Largest on the left side measures 1.3 cm.. IMPRESSION: 1. Both thyroid lobes exhibit size well within normal limits, with the left being smaller than the ri ght. Both thyroid lobes exhibit similar abnormal appearing heterogeneous echotexture, and correlatio n with any history of prior thyroiditis is recommended. 2. There is a solitary solid nodule which is in the lower half of the right lobe and a this register as aTR4 nodule. However, given that it measures less than 1.5 cm it does not require FNA. 3. Bilateral benign-appearing lymph nodes on both sides the neck. Recommend repeat ultrasound in 1 year, earlier if clinically indicated. DATA REPOSITORY:
--- NOTE | 2022-03-01 12:56 | DI.MAMMO_ITS ---
Exam(s) MAMMO SCREENING EXAM: MAMMO SCREENING CLINICAL HISTORY: screening,z12.39. TECHNIQUE: Bilateral full field digital CC and MLO mammographic images were obtained with 3D tomosyn thesis and utilizing computer aided detection (CAD). COMPARISON: Prior 2013 mammogram was reviewed. There are no interval mammograms. FINDINGS: There are no new spiculated masses nor malignant appearing microcalcification groups. There is no significant architectural distortion nor skin thickening-retraction. IMPRESSION: No radiographic evidence of malignancy. BI-RADS Category 1 - Negative Breast Density - Category B - Scattered areas of fibroglandular density Breast density Category C or D implies that the patient has dense breast tissue. Dense breast tissue can make it harder to find cancer on a mammogram. Dense breast tissue is also associated with an incr eased risk of breast cancer. This information about the result of the mammogram report was provided to the patient to raise their awareness. Use this report when you speak with the patient about their risks for breast cancer, which includes their family history. At that time, you may recommend additional screening tests (Ultrasoun d or MRI) as these tests may add significant information. A negative radiographic report should not delay biopsy if a dominant or clinically suspicious mass is present. Up to ten percent of cancers are not identified on mammography. A negative report may reinforce clinical impression. Adenosis and dense breasts may obscure an underlying neoplasm. False positive reports average 6 to 10%. Patient will receive a letter notifying them of these results.
== END ==
PROVIDERS: PCP Nurse Practitioner; Visit Provider Nurse Practitioner
DX: F17.210 Nicotine dependence, cigarettes, uncomplicated (principal); Z12.31 Encounter for screening mammogram for malignant neoplasm of breast; E03.9 Hypothyroidism, unspecified; E04.9 Nontoxic goiter, unspecified; Z12.2 Encounter for screening for malignant neoplasm of respiratory organs
CPT/HCPCS: 71271; 77063; 77067; 76536

== ENCOUNTER 2022-03-10 11:29 | Day surgery (SDC) | payer MEDICAID, SELFPAY ==
--- NOTE | 2022-03-10 10:23 | W.PM.DSUDISC ---
Date of service: 03/10/22 Time of Service: 13:49 Discharge Plan Disposition Patient Disposition: HOME Condition: Good Discharge Details Reason For Visit: EGD and colonoscopy Attending Provider: Rome Fraire Primary Care Provider: Lona Richmond Home Meds and New Rx's Prescriptions: Continued albuterol sulfate [Ventolin HFA] 90 mcg/actuation HFA aerosol inhaler 2 puff inhalation 6XD PRN (Reason: shortness of breath or wheezing) Qty: 18 12RF fluticasone propion-salmeterol [Advair Diskus] 250-50 mcg/dose blister with device 1 inh inhalation BID Qty: 60 6RF Atrovent HFA 17 mcg/actuation HFA aerosol inhaler 2 puff IH Q8H Qty: 12.9 12RF topiramate 100 mg tablet 100 mg PO BID Qty: 180 3RF zaleplon 10 mg capsule 10 mg PO HS Qty: 90 1RF cyanocobalamin (vitamin B-12) 1,000 mcg tablet 1,000 mcg PO DAILY Qty: 90 3RF ibuprofen 600 mg tablet 600 mg PO QID PRN (Reason: pain) Qty: 180 3RF cetirizine 10 mg tablet 10 mg PO DAILY PRN (Reason: allergy symptoms) Qty: 90 3RF Rx Instructions: DX: SEASON[employer] lorazepam 0.5 mg tablet 0.5 mg PO DAILY PRN (Reason: anxiety) Qty: 30 2RF levothyroxine 175 mcg capsule 175 mcg PO DAILY Qty: 90 3RF baclofen 10 mg tablet 10 mg PO HS PRN (Reason: muscle spasm) Qty: 90 3RF atorvastatin 40 mg tablet 40 mg PO QPM Qty: 90 3RF Spiriva Respimat 1.25 mcg/actuation mist 2 puff IH DAILY Qty: 12 3RF pantoprazole 40 mg tablet,delayed release (DR/EC) See Rx Instructions .ROUTE .COMPLEX Qty: 180 3RF Dose Instruction: TAKE ONE TABLET BY MOUTH TWICE A DAY Rx Instructions: TAKE ONE TABLET BY MOUTH TWICE A DAY sertraline 100 mg tablet 200 mg PO DAILY Qty: 180 3RF acyclovir 800 mg tablet See Rx Instructions .ROUTE .COMPLEX Qty: 60 5RF Dose Instruction: TAKE ONE TABLET BY MOUTH TWICE A DAY Rx Instructions: TAKE ONE TABLET BY MOUTH TWICE A DAY trazodone 50 mg tablet See Rx Instructions .ROUTE .COMPLEX Qty: 150 5RF Dose Instruction: TAKE FOUR TABLETS BY MOUTH AT BEDTIME ALSO TAKE 1/2 TO 1 TABLET TWO TIMES A DAY DURING THE DAY NEEDED FOR ANXIETY OR DEPRESSION Rx Instructions: TAKE FOUR TABLETS BY MOUTH AT BEDTIME ALSO TAKE 1/2 TO 1 TABLET TWO TIMES A DAY DURING THE DAY NEEDED FOR ANXIETY OR DEPRESSION docusate sodium 100 mg capsule See Rx Instructions .ROUTE .COMPLEX Qty: 180 3RF Dose Instruction: TAKE ONE CAPSULE BY MOUTH EVERY DAY Rx Instructions: TAKE 2 CAPSULE BY MOUTH EVERY DAY Discontinued bisacodyl [Dulcolax (bisacodyl)] 5 mg tablet,delayed release (DR/EC) 5 mg PO ONCE Qty: 4 0RF Rx Instructions: Take according to provider's instructions for colonoscopy prep. polyethylene glycol 3350 17 gram/dose powder 17 g PO ONCE Qty: 238 0RF Rx Instructions: To be taken as directed by prescriber's office for colonoscopy prep. Discharge Instructions Additional Instructions: 1. If tolerated, consume a soft, low fiber diet for 1-2 days. 2[address] Do not drive, drink alcohol, operate machinery, make critical decisions, or do activities that require coordination or balance for 24 hours. 3. Because air was put into your colon during the procedure, expelling air from your rectum (passing gas or farting) is normal. 4. You may not have a bowel movement for 1-3 days because of the colonoscopy prep. This is normal. 5. You may experience a sore throat for 24 to 48 hours. You may use throat lozenges or gargle with warm salt water to relieve the discomfort. 6. Because air was put into your stomach during the procedure, you may experience some belching. 7. Go directly to the emergency room if you notice any of the following: Develop chills (warm to touch), or if you have a thermometer and your temperature is above 101 Difficulty breathing or difficultly swallowing Persistent vomiting Severe abdominal pain, other than gas cramps Severe chest pain Black, tarry stools Any bleeding ? exceeding one tablespoon 8. Call your physician if the site where your intravenous was started becomes red, swollen, painful, and warm to touch. 9. Your physician has reviewed your pre-procedure medications. Please continue to take those medications as previously ordered. You will be given specific information/education regarding any changes to your medications before leaving. 10. Schedule outpatient swallowing x-ray. I will call you when I have those results to decide the next step Activity:: Activity as Tolerated Diet:: As Tolerated Discharge Orders Discharge Orders: Discharge Order (Routine); Ordered 03/10/22 Ordered By: Rome Fraire DS: Diagnosis Discharge Diagnosis (1) Gastroesophageal reflux disease: Status: Chronic Asessment and Plan: Schedule outpatient barium swallow test to evaluate the upper portion of your esophagus since I was not able to pass the endoscope. (2) Encounter for screening colonoscopy: Status: Acute Asessment and Plan: Screening colonoscopy was negative, and you do not need another one for the next 10 years.
--- NOTE | 2022-03-10 10:25 | W.COLOREPORT ---
Date of service: 03/10/22 Time of Service: 13:53 Colonoscopy Report Date of procedure: 03/10/22 Pre-op diagnosis general: Valladares's esophagus, encounter for screening colonoscopy Post-op diagnosis procedure note: other (Normal colonoscopy, incomplete upper endoscopy) Procedure: Surveillance EGD and screening colonoscopy Surgeon: Arthur Fraire Anesthesia Type: General:No Airway Estimated blood loss (mL): 0 Pathology: none sent Complications: None Disposition: same day Indications: Sherice is a 61-year-old woman with a longstanding history of gastroesophageal reflux disease, and a clinical diagnosis consistent with Valladares's esophagus. Based on her history, I think it is appropriate to proceed with a surveillance upper endoscopy and repeat biopsies to rule out any metaplasia of the distal esophagus. Similarly, she is due for repeat screening colonoscopy as part of routine health maintenance Prep: Miralax/Dulcolax Procedure Start Time: 13:03 Procedure End Time: 13:32 Retraction Time: 12 Findings: I was unable to pass the endoscope beyond the vallecula. Colonoscopy was normal. Procedure Description: After the initiation of monitored anesthetic care, and with the assistance of a bite block, I advanced a standard gastroscope through the mouth past the hypopharynx and into the esophagus.? I was able to navigate into the hypopharynx without any difficulty. I could see the vocal cords and epiglottis without any difficulty. I was able to advance the scope into the piriform recess on both the left and the right, but at no point was able to intubate true esophagus. Lumen of the esophagus was better visualized from the patient's left piriform sinus. The wound did appear to be narrowed to me. There were no discrete masses. Despite several attempts at repositioning, and manipulation of the endoscope, I was not able to cannulate and advanced down the esophagus. In order to minimize the risks of complication, I decided to abort the esophagoscopy portion of the procedure and moved to the colonoscopy. Therefore, we moved the patient in left lateral decubitus position. I began by performing an external anorectal exam.? Perineum and skin were normal, as was the anal verge.? There was no evidence of external hemorrhoids.? Next, I performed a digital rectal exam.? I did not appreciate any abnormal findings.? Next, I advanced a colonoscope into the rectal vault.? I performed retroflexion.? I did not see signs of pathologic internal hemorrhoids.? Using insufflation, I then advanced the colonoscope beyond the rectal folds and into the sigmoid colon before advancing towards the cecum.? The quality of the prep was excellent.? The scope was noted to be in the cecum by identification of the ileocecal valve and appendiceal orifice.? I then began withdrawing the colonoscope using repeated irrigation as necessary for full evaluation of the colonic mucosa. ?Once the scope was withdrawn to the level of the rectum, great care was taken to examine portions of the rectal folds.? Finally, the scope was withdrawn and the patient was brought to the same-day surgery recovery unit as the anesthetic wore off. ?The findings and instructions were shared with the patient prior to discharge.
[2022-03-10 11:45] VITALS: BP 119/76; PULSE 114; RESP 16; TEMP 36.6; O2SAT 97
--- NOTE | 2022-03-10 12:00 | ANES.PREOP_ITS ---
General Info Date of Service Date Performed: 03/10/22 Height: 5 ft 3 in Weight: 63.3 kg Body Mass Index (BMI): 24.7 Surgical Procedure: Operation Date: 03/10/22 13:05 Proposed Procedure Side Surgeon p Colonoscopy/Gastroscopy Rome Fraire MD Meds Allergies and Home Medications Allergies Allergy/AdvReac Type Severity Reaction Status Date / Time bupropion [From Wellbutrin] Allergy Severe Agitation Verified 03/10/22 11:39 cyclobenzaprine AdvReac Mild toe Verified 03/10/22 11:39 cramping lamotrigine AdvReac weight gain Verified 03/10/22 11:39 HORSE DANDER Allergy Intermediate SWELLING Uncoded 03/08/22 13:39 Home Medication Medication Instructions Recorded cyanocobalamin (vitamin B-12) 1,000 mcg PO DAILY #90 tabs 02/26/19 1,000 mcg tablet ibuprofen 600 mg tablet 600 mg PO QID PRN pain #180 tabs 03/10/20 cetirizine 10 mg tablet 10 mg PO DAILY PRN allergy 02/10/21 symptoms #90 tabs levothyroxine 175 mcg capsule 175 mcg PO DAILY #90 caps 04/22/21 Ventolin HFA 90 mcg/actuation 2 puff inhalation 6XD PRN 05/13/21 aerosol inhaler (albuterol sulfate) shortness of breath or wheezing #18 grams atorvastatin 40 mg tablet 40 mg PO QPM #90 tabs 08/09/21 baclofen 10 mg tablet 10 mg PO HS PRN muscle spasm #90 08/09/21 tab-caps tiotropium bromide 1.25 2 puff inhalation DAILY #12 grams 08/31/21 mcg/actuation mist for inhalation (Spiriva Respimat) fluticasone 250 mcg-salmeterol 50 1 inh inhalation BID #60 ea 09/14/21 mcg/dose blistr powdr for inhalation (Advair Diskus) ipratropium bromide 17 2 puff inhalation Q8H #12.9 grams 09/14/21 mcg/actuation HFA aerosol inhaler (Atrovent HFA) topiramate 100 mg tablet 100 mg PO BID migraine #180 tabs 09/14/21 zaleplon 10 mg capsule 10 mg PO HS #90 tab-caps 09/14/21 pantoprazole 40 mg tablet,delayed See Rx Instructions .Route 11/02/21 release .COMPLEX #180 tabs sertraline 100 mg tablet 200 mg PO DAILY #180 tabs 12/07/21 lorazepam 0.5 mg tablet 0.5 mg PO DAILY PRN anxiety #30 01/04/22 tabs acyclovir 800 mg tablet See Rx Instructions .Route 02/01/22 .COMPLEX #60 tabs trazodone 50 mg tablet See Rx Instructions .Route 02/14/22 .COMPLEX #150 tabs docusate sodium 100 mg capsule See Rx Instructions .Route 02/21/22 .COMPLEX #180 caps Current Visit Medications: Current Medications Generic Name Dose Route Start Last Admin Trade Name Freq PRN Reason Stop Dose Admin Hyoscyamine Sulfate 0.125 mg 03/10/22 10:25 Hyoscyamine 0.125 Mg Sl/Oral/Chew SL DIRECTED PRN Ringer's Solution 1,000 mls @ 80 mls/hr 03/10/22 06:00 IV 04/08/22 23:59 INFUSION [facility] IV Miscellaneous Supplies 1 each 03/10/22 06:00 Iv Access IV 04/08/22 23:59 DIRECTED EDUARDO Ondansetron HCl 4 mg 03/10/22 10:25 Ondansetron 4 Mg/2 Ml Vial IVP Q4H PRN PRN Nausea / Vomiting Sodium Chloride 0 ml 03/10/22 06:00 Normal Saline Flush 10 Ml Syr IV 04/08/22 23:59 PRN PRN Sodium Chloride 0 ml 03/10/22 06:00 Normal Saline 10 Ml Vial IJ 04/08/22 23:59 DIRECTED PRN Sterile Water 0 ml 03/10/22 06:00 Water,Injection,Sterile 10 Ml Vial IJ 04/08/22 23:59 DIRECTED PRN PFSH Active Problems Active Problems: Problem Status Onset Code Elevated cholesterol E78.00 Weight gain R63.5 Depression F32.9 Shortness of breath R06.02 Cough R05 Iron deficiency anemia 02/08/12 D50.9 Hypoxia R09.02 Atelectasis J98.11 Pleuritic chest pain R07.81 URI (upper respiratory infection) J06.9 Tobacco use disorder 02/08/12 F17.200 Tension-type headache 02/08/12 G44.209 Tobacco use disorder 02/08/12 F17.200 Restless leg 08/06/12 G25.81 Recurrent genital herpes simplex 02/08/12 A60.00 Pain in joint of left shoulder 02/08/12 M25.512 Pain in joint, shoulder region 02/08/12 M25.519 Intention tremor 11/06/12 G25.2 Hypothyroidism 10/01/12 E03.9 Gastroesophageal reflux disease 02/08/12 K21.9 Esophageal reflux 02/08/12 K21.9 Depressive disorder 02/08/12 F32.9 Valladares's esophagus 02/08/12 K22.70 Asthma 02/08/12 J45.909 Allergic rhinitis 08/06/12 J30.9 Agoraphobia 09/27/16 F40.00 Asthma 02/08/12 J45.909 Seasonal allergies J30.2 Intention tremor G25.2 History of herpes genitalis Z86.19 Pancreatitis, recurrent K86.1 Unspecified asthma, uncomplicated J45.909 Hypoxemia R09.02 Anxiety with depression F41.8 Agoraphobia F40.00 Gastro-esophageal reflux disease without esophagitis K21.9 Restless legs syndrome G25.81 Hypothyroidism, unspecified E03.9 Nicotine dependence, cigarettes, in remission F17.211 Vitamin B12 deficiency anemia, unspecified D51.9 Folate deficiency anemia, unspecified D52.9 Other chronic pancreatitis K86.1 Medical History Medical History ABNORMAL PAP SMEAR, 2009 Alcoholism SOBER 07/1997 Surgical History Surgical History Appendectomy (08/06/97) B/L HIP REPLACEMENT [place]YOTHI Onofre [place] 1994 R, ~1987 DOUBLE BUNIONECTOMY (08/06/72) Endometrial biopsy, 2009, Dr. Rahman (NEG) Fracture, Closed Treatment (12/17/15) with percutaneous pinning of proximal phalanx L thumb Dr Ferreira Rotator Cuff Repair JYOTHI Tobacco Smoking/Tobacco Use Status: Current every day Alcohol Alcohol Intake: never Substance Use Substance use: Never Substance use type: does not use Vital Signs and Lab Results Vital Signs Most Recent Vital Signs in EMR: Most Recent Vital Signs Temp Pulse Resp BP Pulse Ox 36.6 C 114 H 16 119/76 97 03/10/22 11:45 03/10/22 11:45 03/10/22 11:45 03/10/22 11:45 03/10/22 11:45 Lab Results Blood Type / Crossmatch: No Data to Display Complete Blood Count: No Data to Display Complete Metabolic Panel: No Data to Display Liver Function Panel: No Data to Display Coagulation Panel: No Data to Display Cardiac Panel: No Data to Display Arterial Blood Gas: No Data to Display Venous Blood Gas: No Data to Display Pancreas Panel: No Data to Display Thyroid Panel: No Data to Display Infectious Disease: No Data to Display Blood Cultures: No Data to Display Toxicology Panel: No Data to Display Anesthesia Assessment and Plan Anesthesia History Personal History: No History of Anesthesia Complications Family History: No Family History of Anesthesia Complications Exercise Tolerance Exercise Tolerance: Metabolic Equivalents>4 Cardiac & Pulmonary Exam Cardiac Exam: Normal S1/S2 Heart Sounds Pulmonary Exam: Clear Bilateral Breath Sounds Implantable Cardiac Device Does patient have a Pacemaker or an ICD?: No Airway Exam Known Difficult Airway: No Mallampati Class: 1 Mouth Opening: Normal (> 3cm) Thyromental Distance: Greater than 3 cm Neck Range of Motion: Full ROM Neck Circumference: Normal Teeth Condition: Edentulous ASA Classification ASA Score: ASA 1 Emergency Case?: No NPO Status NPO Status: NPO Clears >2 hours, Solids >8 hours Anesthesia Plan Resuscitation Status: Full Code Anesthesia Technique: General Anesthesia Airway Planned: Natural Airway Monitors Used: Standard Monitors
[2022-03-10] MEDS: Lactated Ringers 1,000 ML 80 ML IV (12:02)
[2022-03-10 12:09] VITALS: BMI 24.7
[2022-03-10 13:43] VITALS: BP 90/50; PULSE 88; RESP 16; TEMP 36.5; O2SAT 95
[2022-03-10 14:14] VITALS: BP 100/77; PULSE 86; RESP 16; TEMP 36.5; O2SAT 97
--- NOTE | 2022-03-10 14:32 | W.ANESPOSTOP ---
Postoperative Evaluation Date, Time and Location Date Performed: 03/10/22 Time Performed: 13:50 Patient Location: Day Surgery Unit Vital Signs Most Recent Imported Vital Signs: Most Recent Vital Signs Temp Pulse Resp BP Pulse Ox 36.5 C 86 16 100/77 97 03/10/22 14:14 03/10/22 14:14 03/10/22 14:14 03/10/22 14:14 03/10/22 14:14 Pain Score Most Recent Pain Score: Most Recent Pain Score Pain Level 0 03/10/22 14:14 Assessment Mental Status: Awake (Alert & Oriented to Patient Baseline) Airway and Respiratory Function: Patent airway with normal (patient baseline) respiratory exam Cardiovascular Function: Hemodynamically Stable Hydration Status: Adequately Hydrated Nausea & Vomiting: No Nausea or Vomiting Pain: Pt. Denies Any Pain Peripheral Nerve Block: Patient did not receive a nerve block
== END 2022-03-10 15:25 | disposition home or self-care (01) ==
PROVIDERS: PCP Nurse Practitioner; Visit Provider Surgery
PROC: (CPT 43235; principal; 2022-03-10 13:00)
DX: K21.9 Gastro-esophageal reflux disease without esophagitis (principal); Z12.11 Encounter for screening for malignant neoplasm of colon
CPT/HCPCS: 43235; 45378; J2704

== ENCOUNTER 2022-07-04 03:29 | Outpatient (CLI) | payer MEDICAID, SELFPAY ==
[2022-07-04 16:50] LABS: FREE T4 0.88 ng/dL (0.76-1.46)
[2022-07-04 17:27] LABS: TSH 0.15 uIU/mL (0.36-3.74); Vitamin B12 830 pg/mL (193-986)
== END 2022-07-04 03:30 | disposition home or self-care (01) ==
PROVIDERS: PCP Nurse Practitioner; Visit Provider Nurse Practitioner
DX: E03.9 Hypothyroidism, unspecified (principal); R41.3 Other amnesia
CPT/HCPCS: 36415; 82607; 84439; 84443

== ENCOUNTER 2023-08-23 16:21 | Outpatient (REF) | payer MEDICAID, SELFPAY ==
[2023-08-23 15:46] LABS: Abs Immature Grans 0.03 10^3/uL (0.0-0.06); Absolute Basophil Count 0.05 10^3/uL (0.0-0.2); Absolute Eosinophil Count 0.14 10^3/uL (0.0-0.7); Absolute Lymphocyte Count 2.25 10^3/uL (1.2-3.4); Absolute Monocyte Count 0.47 10^3/uL (0.1-0.8); Basophils % 0.7; Eosinophils % 1.9; HCT 40.1 % (36.0-46.0); HGB 13.1 g/dL (11.2-15.7); Immature Grans % 0.4; Lymphocytes % 29.8; MCH 30.4 pg (27.0-33.0); MCHC 32.7 % (32.0-36.0); MCV 93 fL (80-95); MPV 9.8 fL (8.0-11.0); Monocytes % 6.2; Platelet Count 393 10^3/uL (130-400); RBC 4.31 10^6/uL (3.93-5.22); RDW 13.5 % (11.7-14.6); RDW-SD 46.4 fL; WBC 7.54 10^3/uL (4.4-10.8)
[2023-08-23 16:12] LABS: ALT 25 U/L (14-59); AST 21 U/L (15-37); Albumin 3.9 g/dL (3.4-5.0); Alkaline Phosphatase 105 U/L (46-116); Anion Gap 14.5 mmol/L (3-11); BUN 10 mg/dL (7-18); Bilirubin, Total 0.3 mg/dL (0.2-1.0); CO2 24.5 mmol/L (21.0-32.0); CREATININE 1.1 mg/dL (0.55-1.02); Calcium 8.9 mg/dL (8.5-10.1); Chloride 102 mmol/L (98-107); Estimated GFR 56.46 (mL/min/1.73m2); Glucose 105 mg/dL (74-106); Potassium 3.7 mmol/L (3.5-5.1); Sodium 141 mmol/L (136-145); Total Protein 7.5 g/dL (6.4-8.2)
[2023-08-23 16:44] LABS: TSH (W/Ref FT4) 142.49 uIU/mL (0.36-3.74)
[2023-08-23 17:00] LABS: FREE T4 0.32 ng/dL (0.76-1.46)
[2023-08-24 18:57] LABS: Calculated LDL 314 mg/dL (<100); Cholesterol 423 mg/dL (<200); HDL Cholesterol 71 mg/dL (40-60); Triglyceride 191 mg/dL (<150)
== END 2023-08-23 16:22 | disposition home or self-care (01) ==
LOC: LBN 16:21
PROVIDERS: PCP Nurse Practitioner; Visit Provider Nurse Practitioner
DX: E03.9 Hypothyroidism, unspecified (principal); E78.5 Hyperlipidemia, unspecified
CPT/HCPCS: 80053; 80061; 84439; 84443; 85025

== ENCOUNTER → 2023-09-20 01:22 | Outpatient (CLI) | payer MEDICAID, SELFPAY ==
--- NOTE | 2023-09-20 07:15 | DI.MAMMO_ITS ---
Exam(s) MAMMO SCREENING EXAM: MAMMO SCREENING CLINICAL HISTORY: screening,z12.39. TECHNIQUE: Bilateral full field digital CC and MLO mammographic images were obtained with 3D tomosyn thesis and utilizing computer aided detection (CAD). COMPARISON: Prior mammograms were reviewed. FINDINGS: There has been no significant change in the appearance and distribution of the fibroglandular tissue. There are no CAD designations. There are no new spiculated masses nor malignant appearing microcalcification groups. There is no significant architectural distortion nor skin thickening-retraction. IMPRESSION: No radiographic evidence of malignancy. BI-RADS Category 1 - Negative Breast Density - Category B - Scattered areas of fibroglandular density Breast density Category C or D implies that the patient has dense breast tissue. Dense breast tissue can make it harder to find cancer on a mammogram. Dense breast tissue is also associated with an incr eased risk of breast cancer. This information about the result of the mammogram report was provided to the patient to raise their awareness. Use this report when you speak with the patient about their risks for breast cancer, which includes their family history. At that time, you may recommend additional screening tests (Ultrasoun d or MRI) as these tests may add significant information. A negative radiographic report should not delay biopsy if a dominant or clinically suspicious mass is present. Up to ten percent of cancers are not identified on mammography. A negative report may reinforce clinical impression. Adenosis and dense breasts may obscure an underlying neoplasm. False positive reports average 6 to 10%. Patient will receive a letter notifying them of these results.
--- NOTE | 2023-09-20 07:15 | DI.CT_ITS ---
Exam(s) CT HEAD WO EXAM: CT HEAD WO CLINICAL HISTORY: worsening headaches, feels off balance,r51.9,r26.89. TECHNIQUE: Imaging Protocol: Axial computed tomography images with coronal and sagittal reformatted images were created and reviewed COMPARISON: No exams were available for comparison FINDINGS: There are no skull fractures. There is no fluid in the visualized paranasal sinuses. There is no evidence of intracranial hemorrhage, mass effect, or shift of midline structures. There are no extra-axial fluid collections. The ventricles are not enlarged or shifted and there is no blo od within the ventricular system nor within the basal cisterns. IMPRESSION: No acute intracranial findings on this noninfused CT scan of the brain. Given the symptoms here if clinically indicated follow-up MRI can be performed. RADIATION DOSE DELIVERED: 697.41mGy.cm Total DLP DATA REPOSITORY: All CT scans at this facility are submitted to the National Radiology Data Registry (NRDR) Dose Index Registry (DIR) with the [employer] ([employer]). RADIATION OPTIMIZATION: All CT scans at this facility use at least one of these dose optimization te chniques: automated exposure control; mA and/or kV adjustment per patient size (includes targeted exa ms where dose is matched to clinical indication); or iterative reconstruction.
== END ==
PROVIDERS: PCP Nurse Practitioner; Visit Provider Nurse Practitioner
DX: Z12.31 Encounter for screening mammogram for malignant neoplasm of breast (principal); R51.9 Headache, unspecified; R26.89 Other abnormalities of gait and mobility
CPT/HCPCS: 77063; 77067; 70450

== ENCOUNTER 2023-10-17 05:00 | Outpatient (CLI) | payer MEDICAID, SELFPAY ==
[2023-10-17 12:19] LABS: TSH (W/Ref FT4) 0.12 uIU/mL (0.36-3.74); Vitamin B12 546 pg/mL (193-986)
[2023-10-17 12:39] LABS: FREE T4 1.18 ng/dL (0.76-1.46)
== END 2023-10-17 05:01 | disposition home or self-care (01) ==
LOC: LBO 05:00
PROVIDERS: PCP Nurse Practitioner; Referring Provider Nurse Practitioner; Visit Provider Nurse Practitioner
DX: R41.3 Other amnesia (principal); E03.9 Hypothyroidism, unspecified
CPT/HCPCS: 36415; 82607; 84439; 84443

== ENCOUNTER 2024-01-08 15:32 | Outpatient (CLI) | payer MEDICAID, SELFPAY ==
--- NOTE | 2024-01-08 14:30 | DI.RAD_ITS ---
Exam(s) XR HAND RT COMPLETE XR HAND LT COMPLETE EXAM: XR HAND RT COMPLETE CLINICAL HISTORY: right hand pain. TECHNIQUE: 2D digital imaging was performed. Three views of both hands. COMPARISON: CR LEFT THUMB from 02/11/2016 CR XR HAND LT COMPLETE from 01/08/2024 FINDINGS: BONES: No acute fracture is present. No bony destructive lesion is seen. JOINTS: No dislocation present. Minimal narrowing of the interphalangeal joints of the fingers. Mi ld narrowing periarticular spurring at the 1st carpal metacarpal joints bilaterally. SOFT TISSUE: Normal. IMPRESSION: Mild degenerative changes at the 1st carpal metacarpal joints bilaterally. DATA REPOSITORY: RADIATION DOSE DELIVERED:
== END 2024-01-08 15:33 | disposition home or self-care (01) ==
LOC: DIORS 15:32
PROVIDERS: PCP Nurse Practitioner; Visit Provider Physician Assistant
DX: M19.041 Primary osteoarthritis, right hand (principal); M19.042 Primary osteoarthritis, left hand
CPT/HCPCS: 73130

== ENCOUNTER 2024-04-11 02:03 | Outpatient (CLI) | payer MEDICAID, SELFPAY ==
--- NOTE | 2024-04-11 | DI.MRI_ITS ---
Exam(s) MR BRAIN WO EXAM: MR BRAIN WO CLINICAL HISTORY: off balance, forgetting names, meds, etc. CT neg, memory loss, amnesia TECHNIQUE: Multiplanar multisequence MRI of the brain was performed. COMPARISON: No exams were available for comparison FINDINGS: CEREBRAL PARENCHYMA: There is no evidence of intracranial hemorrhage, mass effect, or shift of midline structures. There are no extra-axial fluid collections. Ventricles are not enlarged or shifted. There is no significant focal signal abnormality in the cerebellar hemispheres nor within the german, m idbrain, and thalami. There is no abnormal signal abnormality in the periventricular white matter. There is no significant focal signal abnormality evident on diffusion imaging to suggest acute ischem ic event. PITUITARY GLAND: No mass nor parasellar abnormality. No obvious abnormality in the cavernous sinuses. FLOW VOIDS: The expected flow void are noted. No evidence of obvious aneurysm nor obvious vascular ma lformation. PARANASAL SINUSES: The visualized paranasal sinuses appear unremarkable. No obvious finding ORBITS: No obvious findings. IMPRESSION: No significant intracranial findings on this noninfused MRI scan of the brain. DATA REPOSITORY:
== END 2024-04-11 02:23 ==
LOC: DI 02:04
PROVIDERS: PCP Nurse Practitioner; Visit Provider Nurse Practitioner
DX: R41.3 Other amnesia (principal); R26.89 Other abnormalities of gait and mobility
CPT/HCPCS: 70551

== ENCOUNTER 2025-02-04 01:35 | Outpatient (CLI) | payer MEDICAID, SELFPAY ==
[2025-02-04 09:39] LABS: Abs Immature Grans 0.01 10^3/uL (0.0-0.06); HCT 37.3 % (36.0-46.0); HGB 12.2 g/dL (11.2-15.7); Immature Grans % 0.1 %; MCH 30.0 pg (27.0-33.0); MCHC 32.7 % (32.0-36.0); MCV 92 fL (80-95); MPV 9.3 fL (8.0-11.0); Platelet Count 277 10^3/uL (130-400); RBC 4.07 10^6/uL (3.93-5.22); RDW 13.2 % (11.7-14.6); RDW-SD 44.8 fL; WBC 7.13 10^3/uL (4.4-10.8)
[2025-02-04 09:57] LABS: Glucose Negative (Negative)
[2025-02-04 11:18] LABS: ALT 18 U/L (14-59); AST 14 U/L (15-37); Albumin 3.5 g/dL (3.4-5.0); Alkaline Phosphatase 101 U/L (46-116); Anion Gap 10.9 mmol/L (3-11); BUN 9 mg/dL (7-18); Bilirubin, Total 0.3 mg/dL (0.2-1.0); CO2 24.1 mmol/L (21.0-32.0); Calcium 8.8 mg/dL (8.5-10.1); Calculated LDL 121 mg/dL (<100); Chloride 107 mmol/L (98-107); Cholesterol 207 mg/dL (<200); Estimated GFR 71.39 (mL/min/1.73m2); Glucose 116 mg/dL (74-106); HDL Cholesterol 73 mg/dL (>or=50); Potassium 3.5 mmol/L (3.5-5.1); Sodium 142 mmol/L (136-145); TSH 0.03 uIU/mL (0.36-3.74); Total Protein 6.9 g/dL (6.4-8.2); Triglyceride 66 mg/dL (<150)
[2025-02-04 11:27] LABS: Uric Acid 3.5 mg/dL (2.6-6.0)
== END 2025-02-04 01:36 | disposition home or self-care (01) ==
LOC: LBO 01:35
PROVIDERS: PCP Nurse Practitioner; Referring Provider Family Medicine; Visit Provider Family Medicine
DX: M1A.9XX1 Chronic gout, unspecified, with tophus (tophi); K86.1 Other chronic pancreatitis; E03.9 Hypothyroidism, unspecified
CPT/HCPCS: 36415; 80053; 80061; 81003; 84443; 84550; 85025

== ENCOUNTER 2025-02-11 02:14 | Outpatient (CLI) | payer MEDICAID, SELFPAY ==
--- NOTE | 2025-02-11 12:25 | DI.MAMMO_ITS ---
Exam(s) MAMMO SCREENING EXAM: MAMMO SCREENING CLINICAL HISTORY: screening,Z12.39 TECHNIQUE: Mammograms were interpreted according to the usual protocol including computer analysis with CAD system, tomosynthesis and C-view imaging. COMPARISON: 2021 and 2023 FINDINGS: The breasts are composed of scattered fibroglandular densities, Breast Density category B. No suspicious masses or suspicious microcalcifications are seen. No skin thickening or abnormal axillary lymph nodes are seen. There has been no significant change from prior exams. IMPRESSION: BI-RADS Category 1, Negative mammogram Yearly screening mammography is recommended. Breast Density - Category B - There are scattered areas of fibroglandular density. Breast density Category C or D implies that the patient has dense breast tissue. Dense breast tissue can make it harder to find cancer on a mammogram. Dense breast tissue is also associated with an increased risk of breast cancer. This information about the result of the mammogram report was provided to the patient to raise their awareness. Use this report when you speak with the patient about their risks for breast cancer, which includes their family history. At that time, you may recommend additional screening tests (Ultrasound or MRI) as these tests may add significant information. A negative radiographic report should not delay biopsy if a dominant or clinically suspicious mass is present. Up to ten percent of cancers are not identified on mammography. A negative report may reinforce clinical impression. Adenosis and dense breasts may obscure an underlying neoplasm. False positive reports average 6 to 10%. Patient will receive a letter notifying them of these results.
== END 2025-02-11 02:34 ==
LOC: DI 02:15
PROVIDERS: PCP Nurse Practitioner; Visit Provider Family Medicine
DX: Z12.31 Encounter for screening mammogram for malignant neoplasm of breast (principal); R92.323 Mammographic fibroglandular density, bilateral breasts
CPT/HCPCS: 77063; 77067

== ENCOUNTER → 2025-03-26 01:23 | Outpatient (CLI) | payer MEDICAID, SELFPAY ==
--- NOTE | 2025-03-26 09:55 | DI.RAD_ITS ---
Exam(s) RF BARIUM SWALLOW EXAM: RF BARIUM SWALLOW CLINICAL HISTORY: Aborted EGD, Unable to pass scope,DYSPHAGIA,BARRETTS ESOPHAGUS TECHNIQUE: 2D and realtime digital imaging was performed. CONTRAST MATERIAL: Oral barium contrast was administered. COMPARISON: CR Ribs R from 07/17/2018 CR Chest from 07/17/2018 FINDINGS: CHEST X-RAY: The heart and pulmonary vasculature are within normal limits. The lungs are clear. No pleural effusion or pneumothorax is present. The bones are within normal limits for the patient's age. ESOPHAGRAM: The esophagus is patent with no evidence for erosions, fold thickening, strictures, or masses. With regards to the motility, there is a normal primary stripping wave. No tertiary contractions were noted. There is a very small hiatal hernia. There is no gastroesophageal reflux. IMPRESSION: Very small hiatal hernia. Otherwise unremarkable examination. RADIATION DOSE DELIVERED: antonina Olson=18.7 mGy
[2025-03-26] MEDS: Barium Sulfate 700 MG TAB PO (11:40)
[2025-03-26] MEDS: Barium Sulfate 98% W/W 140 ML BTL PO (11:43)
[2025-03-26] MEDS: Barium Sulfate 60% W/V 355 ML BTL PO (11:44)
== END ==
LOC: DI 01:23
PROVIDERS: PCP Nurse Practitioner; Visit Provider Student in an Organized Health Care Education/Training Program
DX: K22.70 Barrett's esophagus without dysplasia (principal); R13.10 Dysphagia, unspecified
CPT/HCPCS: 74221; J3490